=== PATIENT | male | born 1980 | race Caucasian/White ===

== ENCOUNTER 2017-07-09 00:20 | Emergency (ER) | payer OTHER ==
[2017-07-09 00:58] LABS: Bilirubin Negative (Negative); Blood, Urine Negative (Negative); Glucose, Urine (Dipstick) Negative (Negative); Ketone, Urine Negative (Negative); Nitrite Negative (Negative); Protein, Urine (Dipstick) Negative (Neg-Trace); Urobilinogen 0.2 mg/dL (0.2-1.0)
[2017-07-09 01:50] LABS: Amphetamine Not Detected (NotDetected); Methadone Not Detected (NotDetected); Methamphetamine Not Detected (NotDetected)
[2017-07-09] MEDS ORDERED: Lidocaine 1% (PF) 30 ML VIAL ONE (02:35)
[2017-07-09 03:19] LABS: #Basophils 0.1 thou/uL (0.0-0.2); #Eosinphils 0.2 thou/uL (0.0-0.7); #Lymphocytes 3.1 thou/uL (1.20-3.40); #Monocytes 0.7 thou/uL (0.11-0.59); #Neutrophils 2.8 thou/uL (1.40-6.50); %Basophils 0.9 % (0.0-1.0); %Eosinophils 2.7 % (0.0-10.0); %Lymphocytes 45.8 % (21.0-51.0); %Monocytes 10.2 % (0.0-10.0); Hematocrit 46.8 % (42.0-52.0); Mean Platelet Volume 7.2 fL (7.4-10.4); Red Blood Cell (RBC) Count 5.38 mill/uL (4.70-6.10); White Blood Cell (WBC) Count 6.8 thou/uL (4.8-10.8)
[2017-07-09 03:30] LABS: CK (CPK) 102 U/L (30-200)
[2017-07-09 03:36] LABS: ALT (SGPT) 57 U/L (8-55); AST (SGOT) 58 U/L (5-34); Acetaminophen Less than 6.0 mcg/mL (10.0-30.0); Alkaline Phosphatase 95 U/L (40-150); Anion Gap 21 mmol/L (10-20); BUN (Urea Nitrogen) 23 mg/dL (8.9-20.6); Bilirubin, Total 0.5 mg/dL (0.2-1.2); Calc. Creatinine Clearance 0 mL/min (70-130); Calcium 8.7 mg/dL (7.8-10.44); Carbon Dioxide 23 mmol/L (22-29); Chloride 104 mmol/L (98-107); Estimated GFR-MDRD 73; Globulin 4.5 g/dL (2.4-3.5); Protein, Total 8.7 g/dL (6.0-8.3); Salicylate Less than 8.0 mg/dL (15.0-30.0)
[2017-07-09] MEDS ORDERED: busPIRone HCl 10 MG TAB PO SCH (18:00)
[2017-07-09] MEDS ORDERED: Folic Acid 1 MG TAB PO SCH ×2 (18:00→21:00)
[2017-07-09] MEDS ORDERED: Gabapentin 100 MG CAP PO SCH ×2 (18:15→21:00)
[2017-07-09] MEDS ORDERED: Hydrochlorothiazide 25 MG TAB PO SCH (18:15)
[2017-07-09] MEDS ORDERED: Carvedilol 6.25 MG TAB PO SCH (18:15)
[2017-07-09] MEDS ORDERED: NALTREXONE PO SCH (21:00)
[2017-07-10] MEDS ORDERED: busPIRone HCl 10 MG TAB PO SCH (09:00)
[2017-07-10] MEDS ORDERED: Carvedilol 6.25 MG TAB PO SCH (09:00)
[2017-07-10] MEDS ORDERED: Hydrochlorothiazide 25 MG TAB PO SCH (09:00)
[2017-07-10] MEDS ORDERED: Magnesium Oxide 400 MG TAB PO SCH (21:00)
[2017-07-10] MEDS ORDERED: Mirtazapine 15 MG TAB PO SCH (21:00)
[2017-07-11] MEDS ORDERED: Ondansetron ODT 8 MG TAB ONE (11:50)
[2017-07-11] MEDS ORDERED: Folic Acid 1 MG TAB ONE (22:22)
== END 2017-07-12 13:40 | disposition home or self-care (01) ==
LOC: ERS 00:20
DX: S41.112A Laceration without foreign body of left upper arm, initial encounter (principal); F32.9 Major depressive disorder, single episode, unspecified; F10.10 Alcohol abuse, uncomplicated; I10 Essential (primary) hypertension; K74.60 Unspecified cirrhosis of liver; J45.909 Unspecified asthma, uncomplicated; I85.00 Esophageal varices without bleeding; F41.9 Anxiety disorder, unspecified; Z79.899 Other long term (current) drug therapy; X83.8XXA Intentional self-harm by other specified means, initial encounter
CPT/HCPCS: 12002; 36415; 51701; 80053; 80306; 80307; 81003; 82550; 84443; 85025; 93005; 94760; 96360; J2001

== ENCOUNTER 2017-11-11 19:23 | Emergency (ER) | payer OTHER, SELFPAY ==
[2017-11-11 20:11] LABS: #Basophils 0.1 thou/uL (0.0-0.2); #Eosinphils 0.2 thou/uL (0.0-0.7); #Lymphocytes 3.1 thou/uL (1.20-3.40); #Monocytes 0.5 thou/uL (0.11-0.59); #Neutrophils 2.4 thou/uL (1.40-6.50); %Basophils 1.9 % (0.0-1.0); %Eosinophils 2.7 % (0.0-10.0); %Monocytes 8.1 % (0.0-10.0); %Neutrophils 38.3 % (42.0-75.0); Hemoglobin 14.7 g/dL (14.0-18.0); Mean Corpuscular HGB CONC 34.7 g/dL (32.0-36.0); Mean Corpuscular Hemoglobin 29.7 pg (27.0-31.0); Mean Corpuscular Volume 85.7 fl (80.0-94.0); Mean Platelet Volume 6.7 fL (7.4-10.4); Platelet Count 252 thou/uL (130-400); RBC Distribution Width 15.9 % (11.5-14.5); Red Blood Cell (RBC) Count 4.95 mill/uL (4.70-6.10); White Blood Cell (WBC) Count 6.4 thou/uL (4.8-10.8)
[2017-11-11 20:34] LABS: ALT (SGPT) 47 U/L (8-55); AST (SGOT) 56 U/L (5-34); Acetaminophen Less than 6.0 mcg/mL (10.0-30.0); Albumin 4.4 g/dL (3.5-5.0); Alkaline Phosphatase 90 U/L (40-150); Anion Gap 19 mmol/L (10-20); BUN (Urea Nitrogen) 16 mg/dL (8.9-20.6); Bilirubin, Total 0.6 mg/dL (0.2-1.2); Calc. Creatinine Clearance 0 mL/min (70-130); Calcium 8.6 mg/dL (7.8-10.44); Carbon Dioxide 21 mmol/L (22-29); Chloride 103 mmol/L (98-107); Estimated GFR-MDRD Greater than 90; Globulin 3.5 g/dL (2.4-3.5); Glucose 106 mg/dL (70-105); Potassium 3.6 mmol/L (3.5-5.1); Protein, Total 7.9 g/dL (6.0-8.3); Salicylate Less than 8.0 mg/dL (15.0-30.0); Sodium 139 mmol/L (136-145)
[2017-11-11 20:39] LABS: Alcohol 402 mg/dL (Less than 10)
[2017-11-11] MEDS ORDERED: Ondansetron HCl/PF 4 MG/2 ML Vial ONE (20:50)
[2017-11-11] MEDS ORDERED: Multivitamins, Adult 10 ML, Thiamine HCl 100 MG, Folic Acid 1 MG in Dextrose 5 %-0.45 %... IV SCH ×4 (21:00)
== END 2017-11-11 22:30 | disposition home or self-care (01) ==
LOC: ERS 19:23
DX: F10.129 Alcohol abuse with intoxication, unspecified (principal); I10 Essential (primary) hypertension; J45.909 Unspecified asthma, uncomplicated; F41.9 Anxiety disorder, unspecified; F32.9 Major depressive disorder, single episode, unspecified; K74.60 Unspecified cirrhosis of liver
CPT/HCPCS: 36415; 80053; 80307; 82140; 85025; 96365; 96366; 96375; 99406; J2405; J3411; J7042

== ENCOUNTER 2017-12-28 13:16 | Inpatient (IN) | payer OTHER ==
[2017-12-28] MEDS ORDERED: Lorazepam 2 MG/ML VIAL ONE ×2 (13:30→15:59)
[2017-12-28] MEDS ORDERED: Ondansetron HCl/PF 4 MG/2 ML Vial ONE (13:30)
[2017-12-28 13:53] LABS: #Eosinphils 0.1 thou/uL (0.0-0.7); #Lymphocytes 1.6 thou/uL (1.20-3.40); #Monocytes 0.6 thou/uL (0.11-0.59); #Neutrophils 4.6 thou/uL (1.40-6.50); %Basophils 0.5 % (0.0-1.0); %Eosinophils 0.9 % (0.0-10.0); %Lymphocytes 23.2 % (21.0-51.0); %Monocytes 8.5 % (0.0-10.0); %Neutrophils 66.9 % (42.0-75.0); Hemoglobin 16.1 g/dL (14.0-18.0); Mean Corpuscular HGB CONC 34.3 g/dL (32.0-36.0); Mean Corpuscular Hemoglobin 29.7 pg (27.0-31.0); Mean Corpuscular Volume 86.5 fl (80.0-94.0); Mean Platelet Volume 6.9 fL (7.4-10.4); Platelet Count 204 thou/uL (130-400); RBC Distribution Width 16.3 % (11.5-14.5); Red Blood Cell (RBC) Count 5.43 mill/uL (4.70-6.10); White Blood Cell (WBC) Count 6.9 thou/uL (4.8-10.8)
[2017-12-28 13:58] LABS: INR-International Normal Ratio 1.1; PTT 29.9 SEC (22.9-36.1); Prothrombin Time 14.1 SEC (12.0-14.7)
[2017-12-28 14:06] LABS: Acetaminophen Less than 6.0 mcg/mL (10.0-30.0); Alcohol 142 mg/dL (Less than 10); Salicylate Less than 8.0 mg/dL (15.0-30.0)
[2017-12-28 14:08] LABS: ALT (SGPT) 225 U/L (8-55); AST (SGOT) 212 U/L (5-34); Albumin 5.1 g/dL (3.5-5.0); Alcohol 143 mg/dL (Less than 10); Alkaline Phosphatase 89 U/L (40-150); Anion Gap 28 mmol/L (10-20); BUN (Urea Nitrogen) 14 mg/dL (8.9-20.6); Bilirubin, Total 1.9 mg/dL (0.2-1.2); Calc. Creatinine Clearance 0 mL/min (70-130); Calcium 9.8 mg/dL (7.8-10.44); Carbon Dioxide 16 mmol/L (22-29); Chloride 96 mmol/L (98-107); Estimated GFR-MDRD Greater than 90; Globulin 3.5 g/dL (2.4-3.5); Glucose 122 mg/dL (70-105); Potassium 3.6 mmol/L (3.5-5.1); Protein, Total 8.6 g/dL (6.0-8.3); Sodium 136 mmol/L (136-145)
[2017-12-28 14:49] LABS: Amphetamine Not Detected (NotDetected); Barbiturates Screen Not Detected (NotDetected); Benzodiazepine Screen Not Detected (NotDetected); Cocaine Metabolite Screen Not Detected (NotDetected); Medtox Control Line Valid? VALID (VALID); Medtox Reader # READER 1; Methadone Not Detected (NotDetected); Methamphetamine Not Detected (NotDetected); Opiate Screen Not Detected (NotDetected); Oxycodone Screen Not Detected (NotDetected); Phencyclidine (PCP) Not Detected (NotDetected); THC/Cannabinoid Screen Detected (NotDetected); Tricyclic Screen Not Detected (NotDetected)
[2017-12-28] MEDS ORDERED: Multivitamins, Adult 10 ML, Thiamine HCl 100 MG, Folic Acid 1 MG in Dextrose 5 %-0.45 %... IV SCH ×4 (15:30)
[2017-12-28] MEDS ORDERED: Acetaminophen 325 MG TAB PO PRN (16:55)
[2017-12-28 17:22] VITALS: BMI 34.0
--- NOTE | 2017-12-28 17:26 | PDOC.FPRHP ---
- History of Present Illness Chief Complaint: alcohol withdrawal History of Present Illness: Thierry Archer is a 37 yo M with a PMH of alcoholism, cirrhosis 2/2 alcohol abuse, HTN, Generalized Anxiety Disorder, Depression, Ascites, Spinal Stenosis, Chronic Pancreatitis, Asthma-mod persistent, peripheral neuropathy, allergic rhinitis who presents today due to alcohol withdrawal. Patient has a history of multiple hospitalizations due to alcohol withdrawal but has relapsed every time. He is seen by [facility] who manages his psych meds. For the last week, he has been drinking a fifth of vodka per day. His last beverage was at 2 am today. Later in the morning, he started developing tremors, formication, cloudy vision, and increased heart rate. He decided to come to the hospital because he knows he wants to get off alcohol. He states that chronic alcohol abuse has injured his body quite a bit. He has been vomiting for the last 3 days and has had decreased PO intake, with the exception of the vodka. He denies fevers, chest pain, dyspnea, visual or auditory hallucinations. - Allergies/Adverse Reactions Allergies Allergy/AdvReac Type Severity Reaction Status Date / Time No Known Allergies Allergy Verified 12/28/17 17:28 - Home Medications Medication Instructions Recorded Confirmed Type Gabapentin 100 mg PO TID 04/26/15 12/28/17 History Hydrochlorothiazide 25 mg PO QAM #0 tab 04/02/16 12/28/17 Rx ALButerol Sulfate [Ventolin Neb] 3 ml NEB Q6HR 08/19/16 12/28/17 History Albuterol Sulfate [Proventil Hfa] 2 puff INH Q6H PRN 08/19/16 12/28/17 History Carvedilol [Coreg] 6.25 mg PO BID-WM 12/28/17 12/28/17 History Esomeprazole Magnesium [Nexium] 40 mg PO QAM-WM 12/28/17 12/28/17 History Ondansetron [Zofran ODT] 4 mg PO Q4HR PRN 12/28/17 12/28/17 History Sertraline HCl [Zoloft] 50 mg PO DAILY 12/28/17 12/28/17 History - History PMHx: Alcoholism, Cirrhosis of the liver, Alcoholic Fatty Liver Disease, HTN, Ascites, Generalized Anxiety Disorder, Depression, Spinal Stenosis, Chronic Pancreatitis, Asthma-mod persistent, peripheral neuropathy, allergic rhinitis PSHx: Wrist repair FHx: Unknown Social: Endorsed alcohol use. Positive for marijuana on UDS. Lives with mother. - Review of Systems General: reports: weight/appetite/sleep changes, night sweats, fatigue. denies : fever/chills Eyes: reports: vision changes. denies: eye pain ENT: denies: nasal congestion, rhinorrhea Respiratory: denies: cough, congestion, shortness of breath Cardiovascular: denies: chest pain, edema, paroxysmal nocturnal dyspnea, orthopnea Gastrointestinal: reports: nausea, vomiting, abdominal pain. denies: diarrhea, constipation Genitourinary: denies: incontinence, dysuria, polyuria Skin: denies: rashes, lesions, jaundice Musculoskeletal: denies: pain, tenderness, stiffness, swelling, arthritis/ arthralgias Neurological: reports: seizure (history of seizures from DTs), other (tremors, formication). denies: numbness, syncope Psychological: denies: anxiety, depression - Vital signs BP: 162/117 HR: 106 RR: 17 Tmax: Pox: 96% on RA Wt: 120 kg - Physical Exam Constitutional: NAD, awake, alert and oriented HEENT: normocephalic and atraumatic, PERRLA, EOMI, conjunctiva clear, TM's clear and intact, normal nasal mucosa, MMM Neck: supple, FROM, trachea midline, no JVD Chest: no-tender to palpation Heart: RRR, normal S1/S2, no murmurs/rubs/gallops, pulses present, no edema Lungs: CTAB, no respiratory distress, good air movement, no rales/rhonchi, no wheezing Abdomen: soft, bowel sounds present, no masses/distention, no hernias -Abdomen: TTP in the epigastric region Musculoskeletal: normal structure, normal tone Neurological: no focal deficit, CN II-XII intact -Neurological: tremors present Skin: no rash/lesions Psychiatric: normal mood and affect, good judgment and insight FMR H&P: Results - Labs Result Diagrams: 12/29/17 04:25 12/29/17 04:25 Lab results: WBC 6.9 thou/uL (4.8-10.8) 12/28/17 13:36 Hgb 16.1 g/dL (14.0-18.0) 12/28/17 13:36 Hct 47.0 % (42.0-52.0) 12/28/17 13:36 MCV 86.5 fl (80.0-94.0) 12/28/17 13:36 Plt Count 204 thou/uL (130-400) 12/28/17 13:36 Neutrophils % 66.9 % (42.0-75.0) 12/28/17 13:36 Sodium 136 mmol/L (136-145) 12/28/17 13:27 Potassium 3.6 mmol/L (3.5-5.1) 12/28/17 13:27 Chloride 96 mmol/L (98-107) L 12/28/17 13:27 Carbon Dioxide 16 mmol/L (22-29) L 12/28/17 13:27 BUN 14 mg/dL (8.9-20.6) 12/28/17 13:27 Creatinine 0.89 mg/dL (0.6-1.3) 12/28/17 13:27 Glucose 122 mg/dL (70-105) H 12/28/17 13:27 Calcium 9.8 mg/dL (7.8-10.44) 12/28/17 13:27 Total Bilirubin 1.9 mg/dL (0.2-1.2) H 12/28/17 13:27 AST 212 U/L (5-34) H 12/28/17 13:27 ALT 225 U/L (8-55) H 12/28/17 13:27 Alkaline Phosphatase 89 U/L (40-150) 12/28/17 13:27 Ammonia 34 umol/L (18-72) 12/28/17 13:28 Serum Total Protein 8.6 g/dL (6.0-8.3) H 12/28/17 13:27 Albumin 5.1 g/dL (3.5-5.0) H 12/28/17 13:27 - EKG Interpretation EKG: sinus tachycardia FMR H&P: A/P - Problem List (1) Alcohol withdrawal syndrome Current Visit: No Status: Acute Code(s): F10.239 - ALCOHOL DEPENDENCE WITH WITHDRAWAL, UNSPECIFIED Qualifiers: Complication of substance-induced condition: with unspecified complication Qualified Code(s): F10.239 - Alcohol dependence with withdrawal, unspecified (2) Chronic alcohol abuse Current Visit: Yes Status: Chronic Code(s): F10.10 - ALCOHOL ABUSE, UNCOMPLICATED (3) Hyperbilirubinemia Current Visit: Yes Status: Acute Code(s): E80.6 - OTHER DISORDERS OF BILIRUBIN METABOLISM (4) Hx of esophageal varices Current Visit: Yes Status: Acute Code(s): Z87.19 - PERSONAL HISTORY OF OTHER DISEASES OF THE DIGESTIVE SYSTEM (5) Peripheral neuropathy Current Visit: Yes Status: Acute Code(s): G62.9 - POLYNEUROPATHY, UNSPECIFIED (6) Anxiety Current Visit: Yes Status: Acute Code(s): F41.9 - ANXIETY DISORDER, UNSPECIFIED (7) Depression Current Visit: Yes Status: Acute Code(s): F32.9 - MAJOR DEPRESSIVE DISORDER , SINGLE EPISODE, UNSPECIFIED (8) Asthma Current Visit: Yes Status: Acute Code(s): J45.909 - UNSPECIFIED ASTHMA, UNCOMPLICATED (9) Metabolic acidosis Current Visit: No Status: Acute Code(s): E87.2 - ACIDOSIS (10) Transaminitis Current Visit: No Status: Chronic Code(s): R74.0 - NONSPEC ELEV OF LEVELS OF TRANSAMNS & LACTIC ACID DEHYDRGNSE - Plan 1) Alcohol withdrawal syndrome: Admit to IMCU. MISTI Protocol. IVFs @ 160 ml/ hr. Ativan 2mg IV q2h. Supplement folate, thiamine, multivitamin. AM CBC and CMP. 2) Metabolic acidosis: 2/2 chronic alcohol abuse. IVFs @ 160 ml/hr. Continue to monitor. 3) Chronic alcohol abuse 4) Transaminitis: 2/2 above. Continue to trend. 5) Hyperbilirubinemia: 2/2 above. Continue to trend. 6) Hx of esophageal varices: Start patient on protonix, zofran for nausea 7) Peripheral neuropathy: cont home gabapentin 8) Asthma: Home meds 9) Anxiety/depression: home meds FMR H&P: Upper Level - Pertinent history Pt is a 37yo CM with PMHx of chronic alcohol abuse w/ multiple relapses, cirrhosis 2/2 EtOH, anxiety/depression and hx of suicide attempts who presents with alcohol withdrawals. Patient has been hospitalized multiple times for alcohol withdrawal though his last hospitalization was in May. He has been doing well and is followed outpatient by [facility]. However, last week he went into binge episode and drank a fifth of vodka. No specific trigger or illicit event but just that he has multiple chronic life stressors. Has been trying to dec his vodka intake each day to wean himself off alcohol. Last drink at 2am where he drank about to 1 pint of vodka. Endorses racing heart, sweats, creepy crawlies and vomiting for several days. Hx of DTs. ED: folate 1mg, thiamine 100mg IV, NS 1L bolus, Ativan 4mg, Zofran 8mg - Pertinent findings T 98.6 RR 16 HR 127 BP 150/118 O2 98% on RA wt 130kg Gen: NAD, resting tremors HEENT: PERRLA Heart: S1 S2, tachycardic Lungs: CTAB Abd: soft, slight TTP diffusely, BS+, +asterixis AST/ALT: 212/225 Tbili: 1.9 (+) THC - Plan Date/Time: 12/28/17 1718 1. Alcohol withdrawal: Patient with hx of chronic alcohol abuse with multiple relapses. Last drink at 2AM now with withdrawal symptoms. ASE protocol. Due to transaminitis will hold long-acting benzos for now and give Ativan prn. Admit to IMCU and monitor closely for DTs. Cont thiamine, folate and MV. 2. AG metabolic acidosis: 2/2 #1. Cont IVF and monitor. 3. Chronic EtOH abuse: patient with longstanding chronic alcohol abuse w/ multiple relapses/hospitalizations for withdrawals. AST/ALT currently elevated but if improving likely start Librium taper. Obtain lipase. 4. Transaminitis: 2/2 #3. Monitor. 5. Hyperbilirubinemia: 2/2 #3. Monitor. 6. Cirrhosis 2/2 EtOH. 7. HTN: Cont home meds. Monitor 8. Anxiety/Depression: cont home meds 9. Peripheral neuropathy: cont home gabapentin. 10. Diet: regular 11. PPx: SCDs and protonix 12. Code Status: full I, Yadira Zamudio, have evaluated this patient and agree with findings/ plan as outlined by internal recruiter resident. Pertinent changes/additions are listed here. Attending Addendum - Attending Addendum Date/Time: 12/28/172010 I personally evaluated the patient and discussed the management with Dr. Blas. I agree with the History, Examination, Assessment and Plan documented above with any addition or exceptions noted below. The patient presented to the ER for alcohol withdrawal. He has a history of seizures in the past with withdrawal. He has been drinking heavily for the past week. Patient's blood pressure is also elevated as he has not been taking his bp meds while drinking. Transaminases are elevated. Pt received ativan in the ER and he still has tremors. Will schedule benzos and place on ase protocol. Restart home meds. Trend liver enzymes.
[2017-12-28] MEDS: Lorazepam 2 MG/ML VIAL SLOW IVP PRN (19:29)
[2017-12-28] MEDS: Sodium Chloride 0.9% 1,000 ML IV SCH (20:16)
[2017-12-29] MEDS: Lorazepam 2 MG/ML VIAL SLOW IVP PRN ×3 (00:09→20:44)
[2017-12-29] MEDS: Ondansetron ODT 4 MG TAB PO PRN ×2 (00:15→08:39)
[2017-12-29] MEDS: Sodium Chloride 0.9% 1,000 ML IV SCH ×2 (02:10→05:25)
[2017-12-29 04:53] LABS: ALT (SGPT) 144 U/L (8-55); AST (SGOT) 113 U/L (5-34); Albumin 4.1 g/dL (3.5-5.0); Alkaline Phosphatase 67 U/L (40-150); Anion Gap 14 mmol/L (10-20); BUN (Urea Nitrogen) 11 mg/dL (8.9-20.6); Bilirubin, Total 1.9 mg/dL (0.2-1.2); Calc. Creatinine Clearance 208 mL/min (70-130); Calcium 8.5 mg/dL (7.8-10.44); Carbon Dioxide 25 mmol/L (22-29); Chloride 100 mmol/L (98-107); Estimated GFR-MDRD Greater than 90; Globulin 2.7 g/dL (2.4-3.5); Glucose 98 mg/dL (70-105); Potassium 3.1 mmol/L (3.5-5.1); Protein, Total 6.8 g/dL (6.0-8.3); Sodium 136 mmol/L (136-145)
[2017-12-29 05:25] LABS: #Eosinphils 0.1 thou/uL (0.0-0.7); #Lymphocytes 1.4 thou/uL (1.20-3.40); #Monocytes 0.4 thou/uL (0.11-0.59); #Neutrophils 2.7 thou/uL (1.40-6.50); %Basophils 0.6 % (0.0-1.0); %Eosinophils 1.4 % (0.0-10.0); %Monocytes 9.2 % (0.0-10.0); %Neutrophils 58.8 % (42.0-75.0); Band 6 % (5-11); Hemoglobin 13.3 g/dL (14.0-18.0); Lymphocytes 32 % (21-51); MDiff Complete? YES; Mean Corpuscular HGB CONC 33.6 g/dL (32.0-36.0); Mean Corpuscular Hemoglobin 29.5 pg (27.0-31.0); Mean Corpuscular Volume 87.8 fl (80.0-94.0); Mean Platelet Volume 7.3 fL (7.4-10.4); Monocytes 5 % (0-10); Neutrophil 51 % (42-75); PLT Morphology Comment Appears Decreased; Platelet Count 105 thou/uL (130-400); RBC Distribution Width 15.9 % (11.5-14.5); RBC Morphology Normal; Reactive Lymphocytes 6 % (0-10); Red Blood Cell (RBC) Count 4.53 mill/uL (4.70-6.10); White Blood Cell (WBC) Count 4.6 thou/uL (4.8-10.8)
[2017-12-29] MEDS ORDERED: Potassium Chloride 20 MEQ TAB PO SCH ×2 (06:30→21:00)
[2017-12-29] MEDS: Multivitamin W/ Minerals 1 TAB PO SCH (08:39)
[2017-12-29] MEDS: Folic Acid 1 MG TAB PO SCH (08:39)
--- NOTE | 2017-12-29 09:42 | PDOC.FM ---
- Subjective Subjective: JELLY overnight, required 6 mg total of PRN ativan since admission. Continued nausea and epigastric abdominal pain w/ resolved episodes of emesis. No new complaints. - Objective MAR Reviewed: Yes Vital Signs & Weight: Vital Signs (12 hours) Temp Pulse Resp BP BP BP Pulse Ox 12/29/17 07:40 98.0 F 89 20 126/105 H 98 12/29/17 05:00 143/87 H 12/29/17 04:00 98.7 F 89 18 121/77 95 12/29/17 01:00 133/99 H 12/29/17 00:00 98.7 F 105 H 18 133/99 H 97 Weight Admit Weight 120.111 kg Weight 120.111 kg I&O: 12/28/17 12/29/17 12/30/17 06:59 06:59 06:59 Intake Total 2090 Output Total 570 Balance 1520 Result Diagrams: 12/29/17 04:25 12/29/17 04:25 <Francis Almendarez - Last Filed: 12/29/17 09:41> - Objective Vital Signs & Weight: Vital Signs (12 hours) Temp Pulse Resp BP BP BP Pulse Ox 12/29/17 09:00 126/105 H 12/29/17 08:00 98.0 F 89 20 98 12/29/17 07:40 98.0 F 89 20 126/105 H 98 12/29/17 05:00 143/87 H 12/29/17 04:00 98.7 F 89 18 121/77 95 12/29/17 01:00 133/99 H 12/29/17 00:00 98.7 F 105 H 18 133/99 H 97 Weight Admit Weight 120.111 kg Weight 120.111 kg I&O: 12/28/17 12/29/17 12/30/17 06:59 06:59 06:59 Intake Total 2090 Output Total 570 Balance 1520 Result Diagrams: 12/29/17 04:25 12/29/17 04:25 <Robert Jacobo - Last Filed: 12/29/17 11:41> Phys Exam - Physical Examination Constitutional: NAD HEENT: PERRLA Respiratory: clear to auscultation bilateral Cardiovascular: RRR Gastrointestinal: soft, no distention, positive bowel sounds epigastric and RUQ TTP. Negative avalos Musculoskeletal: pulses present Mild tremor w/ hands outstretched Psychiatric: normal affect <TaneshaFrancis Jesus - Last Filed: 12/29/17 09:41> Dx/Plan (1) Alcohol withdrawal syndrome Code(s): F10.239 - ALCOHOL DEPENDENCE WITH WITHDRAWAL, UNSPECIFIED Status: Acute QualifierTitle: Complication of substance-induced condition: with unspecified complication Qualified Code(s): F10.239 - Alcohol dependence with withdrawal, unspecified Plan: Pt w/ 10 days of drinking s/p 5 months of being sober w/ minor withdrawal sxs at approx 30 hrs since last drink Will plan to continue w/ short acting benzo w/ ativan 2/2 elevated LFT's likely 2/2 inflammation from his drinking No imaging has been performed to in 1 year to monitor his cirrhosis. Will obtain RUQ U/S to monitor this Cont. w/ IVF and ASE protocol If RUQ stable and LFT's continue to downtrend will transition to librium taper to be continued upon discharge w/ outpatient f/u Discussed case w/ Crit Care Dr. Seo who agrees low likelyhood of Pt developing DT's after only drinking again for 10 days after 5 months sober Will plan to watch in IMCU through this afternoon w/ transition to medical floor later on tonight if pt remains stable (2) Abdominal pain Code(s): R10.9 - UNSPECIFIED ABDOMINAL PAIN Status: Acute QualifierTitle: Abdominal location: right upper quadrant Qualified Code(s ): R10.11 - Right upper quadrant pain Plan: Likely 2/2 alcoholic gastritis vs alcoholic hepatitis Pt w/ hx of gallstones as well w/ hx of N/V x3 days prior to cessation of drinking Will eval for possible gallstone disease as well as cirrhosis to rule this out Cont. w/ zofran for nausea control. Cont. w/ PPI PO as tolerated (3) Hx of esophageal varices Code(s): Z87.19 - PERSONAL HISTORY OF OTHER DISEASES OF THE DIGESTIVE SYSTEM Status: Acute Plan: Pt denies any hematochezia, melena, or hematemesis cont. w/ protonix Will cont. to monitor (4) Hyperbilirubinemia Code(s): E80.6 - OTHER DISORDERS OF BILIRUBIN METABOLISM Status: Acute Plan: Likely 2/2 acute inflammation from resuming EtOH intake RUQ US to rule out gallbladder disease and for cirrhosis monitoring Will cont. to monitor w/ AM CMPS (5) Hypokalemia Code(s): E87.6 - HYPOKALEMIA Status: Acute Plan: Will replace, repeat in AM (6) Alcoholic cirrhosis of liver Code(s): K70.30 - ALCOHOLIC CIRRHOSIS OF LIVER WITHOUT ASCITES Status: Chronic QualifierTitle: Ascites presence: without ascites Qualified Code(s): K70.30 - Alcoholic cirrhosis of liver without ascites Plan: RUQ US to monitor as no imaging for 1 year (7) Hypertension Code(s): I10 - ESSENTIAL (PRIMARY) HYPERTENSION Status: Chronic Plan: Pt w/ elevated BP, asymptomatic Will restart home meds <Francis Almendarez K - Last Filed: 12/29/17 09:41> Attending Addendum - Attending Addendum Date/Time: 12/29/17 1140 I personally evaluated the patient and discussed the management with Dr. Almendarez. I agree with the History, Examination, Assessment and Plan documented above with any addition or exceptions noted below. <Robert Jacobo - Last Filed: 12/29/17 11:41>
--- NOTE | 2017-12-29 09:50 | CON ---
DATE OF CONSULTATION: 12/29/2017 SERVICE: Pulmonary Medicine. REASON FOR CONSULTATION: [facility] patient. HISTORY OF PRESENT ILLNESS: The patient is a 37-year-old white male with past medical history signif icant for polysubstance drug abuse. He uses a lot of alcohol. His cirrhosis is secondary to alcohol abuse. He has had multiple periods of his life in which he has been sober. Most recently, he has b een sober for a period of 5 months. Ten days ago, he started drinking heavily again. He stopped dri nking at 02:00 in the morning, a little over 24 hours ago. When he decided to stop drinking, he came into the hospital immediately because he has a history of severe DTs. At one point, he tells us gm t he spent 40 days in the hospital. He has a history of seizures. Otherwise, there has been no inte rval change to his condition. He noted some abdominal discomfort on presentation, but it seems to be improved at this time. He feels a little bit anxious and feels a pins and needle sensation across h is legs. He feels the need to move him is a little restless. Outside of this, he has got no signifi cant features of withdrawal. PAST MEDICAL HISTORY: 1. Alcohol abuse. 2. Cirrhosis. 3. Hypertension. 4. Generalized anxiety disorder. 5. Major depressive disorder. 6. Chronic pancreatitis. 7. Asthma. 8. Rhinitis. 9. Peripheral neuropathy. PAST SURGICAL HISTORY: Wrist repair. FAMILY HISTORY: Noncontributory. SOCIAL HISTORY: Alcohol abuse is present, previously heavy. He is positive for cannabinoids. He de nies any other illicit drugs. He does not use any significant tobacco products. He lives with his m other and has no exposure to chemicals, dust asbestos or tuberculosis. ALLERGIES: No known drug allergies. MEDICATIONS: List of his inpatient medications were reviewed. No specific updates were made at this time. REVIEW OF SYSTEMS: General, head, ears, eyes, nose, throat, cardiovascular, respiratory, GI, , mus culoskeletal, neurologic and skin is negative except as mentioned in the HPI. PHYSICAL EXAMINATION: VITAL SIGNS: Afebrile, pulse 89, blood pressure 143/87, respirations 20, saturation 98% on room air. GENERAL: The patient is awake, alert, no apparent distress. LUNGS: There is excellent air entry with no prolonged expiratory phase, wheezing, rhonchi or crackle s. HEART: Normal rate, regular. ABDOMEN: Soft, nontender, nondistended. Bowel sounds are positive. MUSCULOSKELETAL: No cyanosis or clubbing. No pitting in the bilateral lower extremities. NEUROLOGIC: Grossly nonfocal. He has got a very small coarse tremor of the bilateral upper extremit ies. LABORATORY DATA: WBC 4.6, hemoglobin 13.3, platelets 105,000. INR 1.1. Potassium 3.1. Basic metab olic profile is otherwise unremarkable. AST and ALT are downtrending beautifully. Total bilirubin i s stable at 1.9, magnesium and ammonia normal. Lipase is unremarkable. Urine drug screen is positiv e for cannabinoids. Plasma alcohol level is down trending. Acetaminophen and salicylates are negati ve. ASSESSMENT: 1. Alcohol withdrawal. 2. Alcohol abuse. 3. Cirrhosis of the liver, source of the liver without acute decompensation. 4. History of delirium tremens. PLAN: Right now, the patient is showing very mild signs of withdrawal features. He tells me that he was sober for previous 5 months though in early November, he came into the Emergency Department acut durga intoxicated. He suggests to me that he has only been drinking once again for the past 10 days. If this is true, I doubt that he will develop significant withdrawal features moving forward. Right now, he is alert and oriented x3, and is in no significant distress. He has got a minimal tremor, wh ich he seems to embellish slightly. The belly pain on presentation is now much improved. The [place] [facility] is working that. From my perspective, he can be transitioned to the medical unit. I will replace his potassium. Pulmonary and Critical Care will continue to follow for 1-2 additional days. Agree with MISTI scores routinely.
[2017-12-29] MEDS ORDERED: PROVENTIL INHALER 6.7 G (200 INHALATIONS) INH PRN (09:54)
[2017-12-29] MEDS ORDERED: Hydrochlorothiazide 25 MG TAB PO SCH (10:00)
[2017-12-29] MEDS ORDERED: Carvedilol 6.25 MG TAB PO SCH (10:00)
--- NOTE | 2017-12-29 17:49 | ULT ---
RIGHT UPPER QUADRANT SONOGRAM: HISTORY: Abdominal pain. COMPARISON: 07/17/2015. FINDINGS: A small amount of echogenic material layers within the dependent portion of the gallbladder lumen. There is no gallbladder wall thickening or pericholecystic fluid. The common duct is 0.7 cm. The li judy is diffusely echogenic and heterogeneous without focal mass. No free fluid is apparent. IMPRESSION: 1. Biliary sludge is consistent with chronic gallbladder dyskinesis. No evidence of acute biliary ob struction. 2. Hepatosteotosis. POS: TPC
[2017-12-29] MEDS: Carvedilol 6.25 MG TAB PO SCH (17:55)
[2017-12-30 05:13] LABS: #Eosinphils 0.1 thou/uL (0.0-0.7); #Lymphocytes 1.6 thou/uL (1.20-3.40); #Monocytes 0.4 thou/uL (0.11-0.59); #Neutrophils 1.9 thou/uL (1.40-6.50); %Basophils 0.5 % (0.0-1.0); %Eosinophils 3.4 % (0.0-10.0); %Lymphocytes 38.2 % (21.0-51.0); %Monocytes 10.7 % (0.0-10.0); %Neutrophils 47.2 % (42.0-75.0); Hemoglobin 13.9 g/dL (14.0-18.0); Mean Corpuscular HGB CONC 32.9 g/dL (32.0-36.0); Mean Corpuscular Hemoglobin 29.1 pg (27.0-31.0); Mean Corpuscular Volume 88.2 fl (80.0-94.0); Mean Platelet Volume 7.8 fL (7.4-10.4); Platelet Count 99 thou/uL (130-400); RBC Distribution Width 15.6 % (11.5-14.5); Red Blood Cell (RBC) Count 4.77 mill/uL (4.70-6.10); White Blood Cell (WBC) Count 4.1 thou/uL (4.8-10.8)
[2017-12-30 05:17] LABS: ALT (SGPT) 142 U/L (8-55); AST (SGOT) 120 U/L (5-34); Albumin 4.3 g/dL (3.5-5.0); Alkaline Phosphatase 75 U/L (40-150); Anion Gap 15 mmol/L (10-20); BUN (Urea Nitrogen) 7 mg/dL (8.9-20.6); Bilirubin, Total 1.6 mg/dL (0.2-1.2); Calc. Creatinine Clearance 227 mL/min (70-130); Calcium 9.3 mg/dL (7.8-10.44); Carbon Dioxide 25 mmol/L (22-29); Chloride 99 mmol/L (98-107); Estimated GFR-MDRD Greater than 90; Globulin 3.2 g/dL (2.4-3.5); Glucose 103 mg/dL (70-105); Magnesium 1.7 mg/dL (1.6-2.6); Potassium 3.4 mmol/L (3.5-5.1); Protein, Total 7.5 g/dL (6.0-8.3); Sodium 136 mmol/L (136-145)
[2017-12-30] MEDS ORDERED: Potassium Chloride 20 MEQ TAB PO SCH (07:30)
--- NOTE | 2017-12-30 07:32 | PDOC.FM ---
- Subjective Subjective: JELLY overnight, VSS. No new complaints this AM. Minimal tremor. 6 mg of ativan used yesterday. Tolerated PO intake. Abdominal pain mildly improved. Still endorsing nausea which is improved w/ PRN zofran. - Objective MAR Reviewed: Yes Vital Signs & Weight: Vital Signs (12 hours) Temp Pulse Resp BP BP Pulse Ox 12/30/17 00:00 98.8 F 84 16 113/75 97 12/29/17 21:00 138/98 H 12/29/17 20:00 98.4 F 99 18 138/98 H 98 Weight Admit Weight 120.111 kg Weight 120.111 kg I&O: 12/29/17 12/30/17 12/31/17 06:59 06:59 06:59 Intake Total 2089 2019 Output Total 570 Balance 1520 2019 Result Diagrams: 12/30/17 04:51 12/30/17 04:51 <Francis Almendarez - Last Filed: 12/30/17 07:30> - Objective Vital Signs & Weight: Vital Signs (12 hours) Temp Pulse Resp BP BP BP Pulse Ox 12/30/17 08:12 150/95 H 12/30/17 07:49 97.2 F L 98 20 133/92 H 98 12/30/17 04:00 98.7 F 81 16 111/73 95 12/30/17 00:00 98.8 F 84 16 113/75 97 Weight Admit Weight 120.111 kg Weight 120.111 kg I&O: 12/29/17 12/30/17 12/31/17 06:59 06:59 06:59 Intake Total 2089 2369 Output Total 570 580 Balance 1520 1790 Result Diagrams: 12/30/17 04:51 12/30/17 04:51 <Robert Jacobo - Last Filed: 12/30/17 09:02> Phys Exam - Physical Examination Constitutional: NAD HEENT: PERRLA, moist MMs Respiratory: clear to auscultation bilateral Cardiovascular: RRR, no significant murmur Gastrointestinal: soft, positive bowel sounds mild tenderness to palpation epigastrium, negative murphys Musculoskeletal: no edema Neurological: moves all 4 limbs minimal tremor w/ hands outstretched. No diaphoresis. Psychiatric: normal affect, A&O x 3 Skin: cap refill <2 seconds <Francis Almendarez - Last Filed: 12/30/17 07:30> Dx/Plan (1) Alcohol withdrawal syndrome Code(s): F10.239 - ALCOHOL DEPENDENCE WITH WITHDRAWAL, UNSPECIFIED Status: Acute QualifierTitle: Complication of substance-induced condition: with unspecified complication Qualified Code(s): F10.239 - Alcohol dependence with withdrawal, unspecified Plan: Pt w/ 10 days of drinking s/p 5 months of being sober w/ minor withdrawal sxs at approx 53 hrs since last drink 6 mg of ativan used in last 24 hours which converts to 150 mg of librium Will start PO taper w/ PO librium at 25 mg QID Discussed case w/ Crit Care Dr. Seo who agrees pt at low risk for withdrawal seizure and DT's 2/2 prolonged period of being sober and only 10 days actively drinking Will consider d/c today on librium taper (2) Abdominal pain Code(s): R10.9 - UNSPECIFIED ABDOMINAL PAIN Status: Acute QualifierTitle: Abdominal location: epigastric Qualified Code(s): R10.13 - Epigastric pain Plan: Improved sxs on Protonix Likely 2/2 alcoholic gastritis Tolerating PO Nausea controlled w/ PRN zofran RUQ showing sludge w/o evidence of cholecystitis or docholithiasis Cont. w/ PPI for gastritis w/ improvement in sxs Zofran for nausea control Plan to have pt see surgery for elective aminta as outpatient if he continues to be symptomatic s/p resolution of gastritis (3) Hx of esophageal varices Code(s): Z87.19 - PERSONAL HISTORY OF OTHER DISEASES OF THE DIGESTIVE SYSTEM Status: Acute Plan: Pt denies any hematochezia, melena, or hematemesis cont. w/ protonix Will cont. to monitor (4) Hyperbilirubinemia Code(s): E80.6 - OTHER DISORDERS OF BILIRUBIN METABOLISM Status: Acute Plan: Likely 2/2 acute inflammation from resuming EtOH intake RUQ US negative for dilated CBD Will cont. to monitor (5) Hypokalemia Code(s): E87.6 - HYPOKALEMIA Status: Acute Plan: Will replace (6) Alcoholic cirrhosis of liver Code(s): K70.30 - ALCOHOLIC CIRRHOSIS OF LIVER WITHOUT ASCITES Status: Chronic QualifierTitle: Ascites presence: without ascites Qualified Code(s): K70.30 - Alcoholic cirrhosis of liver without ascites Plan: RUQ stable (7) Hypertension Code(s): I10 - ESSENTIAL (PRIMARY) HYPERTENSION Status: Chronic Plan: Cont. w/ home meds Stable <Francis Almendarez - Last Filed: 12/30/17 07:30> Attending Addendum - Attending Addendum Date/Time: 12/30/17 0901 I personally evaluated the patient and discussed the management with Dr. Almendarez. I agree with the History, Examination, Assessment and Plan documented above with any addition or exceptions noted below. Patient is stable for discharge with librium taper. <Robert Jacobo A - Last Filed: 12/30/17 09:02>
[2017-12-30] MEDS: Ondansetron ODT 4 MG TAB PO PRN (07:35)
[2017-12-30 07:50] VITALS: TEMP 97.2
[2017-12-30] MEDS: Folic Acid 1 MG TAB PO SCH (08:12)
[2017-12-30] MEDS: Carvedilol 6.25 MG TAB PO SCH (08:12)
[2017-12-30] MEDS: Multivitamin W/ Minerals 1 TAB PO SCH (08:12)
--- NOTE | 2017-12-30 08:42 | PRG ---
DATE OF SERVICE: 12/30/2017 The patient seems to be doing okay, had no acute complaints. PHYSICAL EXAMINATION: VITAL SIGNS: Temperature is 97.2, pulse 98, blood pressure 150/95, O2 sat 98%. HEENT: Unremarkable. NECK: No JVD. CHEST: Clear. CARDIAC: S1 and S2 regular. ABDOMEN: Soft. EXTREMITIES: No edema. LABORATORY DATA: White blood cell count 4.1, hematocrit 42, platelet count 99. Sodium 136, potassiu m 3.4, chloride 99, CO2 25, BUN 7, creatinine 0.7, glucose 103, AST 120, ALT 142. ASSESSMENT: 1. Alcohol withdrawal, which seems to be mild. 2. Mild elevation in liver function tests probably secondary to alcoholic hepatitis. PLAN: He can be transferred out to the floor and perhaps even home. There is no acute Pulmonary Cri tical Care concerns at this time. We are available as needed.
[2017-12-30] MEDS ORDERED: chlordiazePOXIDE HCl 25 MG CAP PO SCH (09:00)
[2017-12-30] MEDS ORDERED: Hydrochlorothiazide 25 MG TAB PO SCH (09:00)
[2017-12-30 10:09] VITALS: BP 133/92
--- NOTE | 2017-12-30 11:49 | DIS-2 ---
DATE OF ADMISSION: 12/28/2017 DATE OF DISCHARGE: 12/30/2017 ADMITTING ATTENDING: Dr. Margarita Almendarez. DISCHARGE ATTENDING: Dr. Robert Jacobo RESIDENT: Francis Almendarez M.D. CONSULTATIONS: Critical Care Pulmonology. PROCEDURES: None. IMAGING: Right upper quadrant abdominal ultrasound showing hepatosteatosis as well as biliary sludge without evidence of pericholecystic fluid or acute biliary obstruction. PRIMARY DIAGNOSIS: 1. Minor alcohol withdrawal. 2. Alcoholic hepatitis. 3. Alcoholic gastritis. SECONDARY DIAGNOSES: 1. Chronic alcohol abuse. 2. History of esophageal varices. 3. Peripheral neuropathy. 4. Anxiety. 5. Depression. 6. Asthma. DISCHARGE MEDICATIONS: 1. Librium 25 mg p.o. per taper taking 25 mg p.o. q.i.d. on day 1 with decrease of 25 mg daily there after. 2. Protonix 40 mg p.o. daily. 3. Zofran ODT 4 mg sublingual q.6 hours as needed for nausea and vomiting. 4. Proventil HFA 2 puffs q.6 hours as needed for shortness of breath or wheezing. 5. Coreg 6.25 mg p.o. b.i.d. with meals. 6. HCTZ 25 mg p.o. q.a.m. 7. Zoloft 75 mg p.o. every day. 8. Gabapentin 100 mg p.o. t.i.d. 9. Nexium 40 mg p.o. q.a.m. with meals. DISCONTINUED MEDICATIONS: None. HISTORY OF PRESENT ILLNESS: The patient is a 37-year-old male well known to our service with multipl e prior admissions for alcohol withdrawal, who presents status post 10 days of heavy alcohol use, dri nking a fifth of vodka daily. The patient reportedly was 5 months sober prior to this. His last francesco erage was at 2 a.m. on the date of admission. The patient stated that he had a few days of nausea, v omiting prior to alcohol cessation. After stopping drinking the patient started having tremors, clou dy vision and increased heart rate, which prompted him to come to the ER for further evaluation. The patient denied any visual hallucinations at time of admission. The patient was admitted to the [facility] for further monitoring secondary to history of delirium tremens. The patient with minor symptoms of tachycardia as well as tremor which was controlled with p.r.n. Ativan use. The patient did have bridget vated liver functions above baseline from prior hospitalizations, which began to be down trending, st atus post IV fluid administration. Repeat right upper quadrant ultrasound was obtained to evaluate w ith the patient's history of hepatosteatosis, which was stable and no evidence of biliary obstruction in the setting of hyperbilirubinemia up to 1.9 which is down trending to 1.6 prior to discharge home . The patient was transitioned to p.o. Librium, which he was able to tolerate and discharged on a ta per with plans to follow up with PCP in the outpatient setting for further management. The patient d id have abdominal pain which is likely secondary to alcoholic gastritis with improvement on the p.o. Protonix he was being administered. Once alcoholic gastritis symptoms have resolved, further evaluat ion to see if the patient is having any biliary colic type symptoms in the setting of sludge would be recommended with subsequent referral to General Surgery for elective cholecystectomy if indicated. DISPOSITION: Stable. DISCHARGE INSTRUCTIONS: 1. Location: Home. 2. Activity: As tolerated. 3. Follow up with PCP in 7 days.
== END 2017-12-30 11:46 | disposition home or self-care (01) | DRG 897 ==
LOC: ERS 13:16 → IMCU/EMU 17:17
PROVIDERS: ADMIT Family Medicine; ATTEND Family Medicine
DX: F10.239 Alcohol dependence with withdrawal, unspecified (principal); E87.2 Acidosis; K70.10 Alcoholic hepatitis without ascites; K86.0 Alcohol-induced chronic pancreatitis; G62.9 Polyneuropathy, unspecified; R16.0 Hepatomegaly, not elsewhere classified; K70.31 Alcoholic cirrhosis of liver with ascites; K70.0 Alcoholic fatty liver; F41.1 Generalized anxiety disorder; J45.40 Moderate persistent asthma, uncomplicated; I10 Essential (primary) hypertension; F32.9 Major depressive disorder, single episode, unspecified; E80.6 Other disorders of bilirubin metabolism; Z87.19 Personal history of other diseases of the digestive system; R74.0 Nonspecific elevation of levels of transaminase and lactic acid dehydrogenase [LDH]; K29.20 Alcoholic gastritis without bleeding; E87.6 Hypokalemia; K21.9 Gastro-esophageal reflux disease without esophagitis; F12.10 Cannabis abuse, uncomplicated; Z91.5 Personal history of self-harm; M48.00 Spinal stenosis, site unspecified; Z87.891 Personal history of nicotine dependence
CPT/HCPCS: 36415; 76705; 80053; 80306; 80307; 82140; 83690; 83735; 85025; 85610; 85730; 93005; 96361; 96374; 96375; 96376; J2060; J2405; J3411; J7042

== ENCOUNTER 2018-02-15 13:32 | Inpatient (IN) | payer OTHER ==
[2018-02-15 14:06] LABS: Hemoglobin 16.1 g/dL (14.0-18.0); Mean Corpuscular HGB CONC 34.5 g/dL (32.0-36.0); Mean Corpuscular Hemoglobin 30.7 pg (27.0-31.0); Platelet Count 275 thou/uL (130-400); RBC Distribution Width 16.7 % (11.5-14.5); Red Blood Cell (RBC) Count 5.26 mill/uL (4.70-6.10)
[2018-02-15] MEDS ORDERED: Lorazepam 2 MG/ML VIAL ONE ×2 (14:07→14:27)
[2018-02-15 14:10] LABS: INR-International Normal Ratio 1.2; PTT 30.3 SEC (22.9-36.1); Prothrombin Time 15.2 SEC (12.0-14.7)
[2018-02-15 14:19] LABS: ALT (SGPT) 275 U/L (8-55); AST (SGOT) 213 U/L (5-34); Acetaminophen Less than 6.0 mcg/mL (10.0-30.0); Albumin 5.3 g/dL (3.5-5.0); Alcohol 48 mg/dL (Less than 10); Alkaline Phosphatase 94 U/L (40-150); Anion Gap 32 mmol/L (10-20); BUN (Urea Nitrogen) 10 mg/dL (8.9-20.6); Bilirubin, Total 1.7 mg/dL (0.2-1.2); CK (CPK) 181 U/L (30-200); Calc. Creatinine Clearance 0 mL/min (70-130); Calcium 9.8 mg/dL (7.8-10.44); Carbon Dioxide 15 mmol/L (22-29); Chloride 94 mmol/L (98-107); Estimated GFR-MDRD 72; Glucose 101 mg/dL (70-105); Lipase 38 U/L (8-78); Magnesium 1.6 mg/dL (1.6-2.6); Potassium 3.7 mmol/L (3.5-5.1); Protein, Total 9.3 g/dL (6.0-8.3); Salicylate Less than 8.0 mg/dL (15.0-30.0); Sodium 137 mmol/L (136-145)
[2018-02-15 14:22] LABS: Troponin I Less than 0.010 ng/mL (< 0.028)
[2018-02-15 14:35] LABS: Anisocytosis SLIGHT = 6-15 cells (100X) (0-5/hpf); Band 2 % (5-11); Lymphocytes 29 % (21-51); MDiff Complete? YES; Monocytes 5 % (0-10); Neutrophil 64 % (42-75); PLT Morphology Comment Appears Adequate
[2018-02-15 14:41] LABS: Bilirubin Moderate (Negative); Blood, Urine Negative (Negative); Clarity CLOUDY (Clear); Glucose, Urine (Dipstick) Negative (Negative); Leukocyte Negative (Negative); Nitrite Negative (Negative); Protein, Urine (Dipstick) 100 mg/dL (Neg-Trace)
[2018-02-15 14:44] LABS: Squamous Epithelial 0-3 HPF (0-3); WBC/HPF 0-3 HPF (0-3)
[2018-02-15 14:46] LABS: Pathc Cast-AUWi Flag 5.96 (0-2.49)
[2018-02-15 14:53] LABS: Amphetamine Not Detected (NotDetected); Barbiturates Screen Not Detected (NotDetected); Benzodiazepine Screen Detected (NotDetected); Cocaine Metabolite Screen Not Detected (NotDetected); Medtox Control Line Valid? VALID (VALID); Medtox Reader # READER 1; Methadone Not Detected (NotDetected); Methamphetamine Not Detected (NotDetected); Opiate Screen Not Detected (NotDetected); Oxycodone Screen Not Detected (NotDetected); Phencyclidine (PCP) Not Detected (NotDetected); THC/Cannabinoid Screen Detected (NotDetected); Tricyclic Screen Not Detected (NotDetected)
[2018-02-15 14:55] LABS: Bacteria/HPF Rare-Few HPF (None Seen); Hyaline Casts/LPF 0-3 HYALINE CAST LPF (0-3 Hyaline); Manual Microscopic Reviewed? No Path Casts Seen; RBC/HPF None Seen HPF (0-3); Renal Epithelial None Seen HPF (0-3); Transitional Epithelial NONE SEEN HPF (0-3)
--- NOTE | 2018-02-15 15:23 | PDOC.FPRHP ---
- History of Present Illness Chief Complaint: alcohol withdrawal History of Present Illness: Patient is a 37yo M with PMH of alcohol abuse, cirrhosis, and chronic pancreatitis presents after binge drinking 2 pints of vodka daily for 6 days with acute withdrawal sx. His last drink was 7pm 02/14. He was admitted in December 2017 and reports tapered off Librium and has been sober since then until the past 6 days. This morning he awoke around 6am with N/V, abdominal pain, flushing, diaphoresis, and tremors. His mom reports he also had some clenching of his fists in a contractured manner. He has had one withdrawal seizure in the past. In the ED, he was initially tachycardic to the 130's and at the time of my exam is in the 110's. He reports continued abdominal pain, RLQ and epigastric. ED Course: He was given 5mg of ativan and banana bag in the ED. - Allergies/Adverse Reactions Allergies Allergy/AdvReac Type Severity Reaction Status Date / Time No Known Allergies Allergy Verified 12/28/17 17:28 - Home Medications Medication Instructions Recorded Confirmed Type Gabapentin 100 mg PO TID 04/26/15 02/15/18 History Hydrochlorothiazide 25 mg PO QAM #0 tab 04/02/16 02/15/18 Rx ALButerol Sulfate [Ventolin Neb] 3 ml NEB Q6HR PRN 08/19/16 02/15/18 History Albuterol Sulfate [Proventil Hfa] 2 puff INH Q6H PRN 08/19/16 02/15/18 History Carvedilol [Coreg] 6.25 mg PO BID- 12/28/17 02/15/18 History Esomeprazole Magnesium [NexIUM] 40 mg PO QAM- 12/28/17 02/15/18 History Sertraline HCl [Zoloft] 50 mg PO DAILY 12/28/17 02/15/18 History Ondansetron [Zofran ODT] 4 mg PO Q4HR PRN #30 tab 12/30/17 02/15/18 Rx Pantoprazole [Protonix] 40 mg PO DAILY #30 tab 12/30/17 02/15/18 Rx - History PMHx: 1. Cirrhosis 2. Alcoholic Hepatitis 3. Chronic Pancreatitis 4. Spinal stenosis 5. Peripheral neuropathy 6. Depression 7. Anxiety 8. Asthma 9. HTN PSHx: 1. L arm tendon repair 2. B/l cosmetic ear repair 3. paracentesis FHx: noncontributory Social: Drinks 2pints of vodka daily for the past 6 days, multiple relapses in alcoholism. Denies tobacco and drug use. PCP: [facility] - Review of Systems General: reports: weight/appetite/sleep changes. denies: fever/chills, night sweats Eyes: denies: eye pain, vision changes ENT: denies: nasal congestion Respiratory: denies: cough, congestion, shortness of breath Cardiovascular: denies: chest pain, palpitation Gastrointestinal: reports: nausea, vomiting, abdominal pain. denies: diarrhea, GI bleeding Genitourinary: denies: incontinence, dysuria, polyuria Skin: denies: rashes, lesions, jaundice Musculoskeletal: denies: pain, tenderness Neurological: denies: numbness, syncope Psychological: reports: anxiety, depression - Vital signs BP: 141/97 HR: 112 RR: 20 Tmax: 98.2 Pox: 95% on RA Wt: 127kg - Physical Exam Constitutional: NAD, awake, alert and oriented -Constitutional: tremulous HEENT: normocephalic and atraumatic, EOMI, no scleral icterus, grossly normal vision, grossly normal hearing Heart: RRR, normal S1/S2, no edema Lungs: CTAB, no respiratory distress Abdomen: soft, bowel sounds present -Abdomen: mild fluid wave, ttp Musculoskeletal: normal structure Neurological: no focal deficit, CN II-XII intact Skin: no rash/lesions Heme/Lymphatic: no unusual bruising or bleeding Psychiatric: normal mood and affect FMR H&P: Results - Labs Result Diagrams: 02/15/18 13:51 02/15/18 13:51 Lab results: WBC 7.0 thou/uL (4.8-10.8) 02/15/18 13:51 Hgb 16.1 g/dL (14.0-18.0) 02/15/18 13:51 Hct 46.8 % (42.0-52.0) 02/15/18 13:51 MCV 89.0 fl (80.0-94.0) 02/15/18 13:51 Plt Count 275 thou/uL (130-400) 02/15/18 13:51 Band Neuts % (Manual) 2 % (5-11) L 02/15/18 13:51 Sodium 137 mmol/L (136-145) 02/15/18 13:51 Potassium 3.7 mmol/L (3.5-5.1) 02/15/18 13:51 Chloride 94 mmol/L (98-107) L 02/15/18 13:51 Carbon Dioxide 15 mmol/L (22-29) L 02/15/18 13:51 BUN 10 mg/dL (8.9-20.6) 02/15/18 13:51 Creatinine 1.14 mg/dL (0.6-1.3) 02/15/18 13:51 Glucose 101 mg/dL (70-105) 02/15/18 13:51 Calcium 9.8 mg/dL (7.8-10.44) 02/15/18 13:51 Total Bilirubin 1.7 mg/dL (0.2-1.2) H 02/15/18 13:51 AST 213 U/L (5-34) H 02/15/18 13:51 ALT 275 U/L (8-55) H 02/15/18 13:51 Alkaline Phosphatase 94 U/L (40-150) 02/15/18 13:51 Ammonia 52 umol/L (18-72) 02/15/18 13:51 Creatine Kinase 181 U/L (30-200) 02/15/18 13:51 CK-MB (CK-2) 1.0 ng/mL (0-6.6) 02/15/18 13:51 Serum Total Protein 9.3 g/dL (6.0-8.3) H 02/15/18 13:51 Albumin 5.3 g/dL (3.5-5.0) H 02/15/18 13:51 Lipase 38 U/L (8-78) 02/15/18 13:51 Urine Ketones 15 mg/dL (Negative) H 02/15/18 14:20 Urine Blood Negative (Negative) 02/15/18 14:20 Urine Nitrite Negative (Negative) 02/15/18 14:20 Ur Leukocyte Esterase Negative (Negative) 02/15/18 14:20 Urine RBC None Seen HPF (0-3) 02/15/18 14:20 Urine WBC 0-3 HPF (0-3) 02/15/18 14:20 Ur Squamous Epith Cells 0-3 HPF (0-3) 02/15/18 14:20 Urine Bacteria Rare-Few HPF (None Seen) 02/15/18 14:20 - EKG Interpretation EKG: Prolonged QT per ER physician. FMR H&P: A/P - Problem List (1) Alcohol withdrawal syndrome Current Visit: No Status: Acute Code(s): F10.239 - ALCOHOL DEPENDENCE WITH WITHDRAWAL, UNSPECIFIED Qualifiers: Complication of substance-induced condition: with unspecified complication Qualified Code(s): F10.239 - Alcohol dependence with withdrawal, unspecified (2) Abdominal pain Current Visit: No Status: Acute Code(s): R10.9 - UNSPECIFIED ABDOMINAL PAIN Qualifiers: Abdominal location: epigastric Qualified Code(s): R10.13 - Epigastric pain (3) Abstinence from alcohol Current Visit: No Status: Acute Code(s): Z78.9 - OTHER SPECIFIED HEALTH STATUS (4) Asthma Current Visit: No Status: Acute Code(s): J45.909 - UNSPECIFIED ASTHMA, UNCOMPLICATED (5) Depression Current Visit: No Status: Acute Code(s): F32.9 - MAJOR DEPRESSIVE DISORDER, SINGLE EPISODE, UNSPECIFIED (6) Hx of esophageal varices Current Visit: No Status: Acute Code(s): Z87.19 - PERSONAL HISTORY OF OTHER DISEASES OF THE DIGESTIVE SYSTEM (7) Hyperbilirubinemia Current Visit: No Status: Acute Code(s): E80.6 - OTHER DISORDERS OF BILIRUBIN METABOLISM (8) Metabolic acidosis Current Visit: No Status: Acute Code(s): E87.2 - ACIDOSIS (9) Peripheral neuropathy Current Visit: No Status: Acute Code(s): G62.9 - POLYNEUROPATHY, UNSPECIFIED (10) Alcoholic cirrhosis of liver Current Visit: No Status: Chronic Code(s): K70.30 - ALCOHOLIC CIRRHOSIS OF LIVER WITHOUT ASCITES Qualifiers: Ascites presence: without ascites Qualified Code(s): K70.30 - Alcoholic cirrhosis of liver without ascites (11) Cannabis abuse Current Visit: No Status: Chronic Code(s): F12.10 - CANNABIS ABUSE, UNCOMPLICATED (12) GERD (gastroesophageal reflux disease) Current Visit: No Status: Chronic Code(s): K21.9 - GASTRO-ESOPHAGEAL REFLUX DISEASE WITHOUT ESOPHAGITIS (13) Transaminitis Current Visit: No Status: Chronic Code(s): R74.0 - NONSPEC ELEV OF LEVELS OF TRANSAMNS & LACTIC ACID DEHYDRGNSE - Plan EtOH withdrawal: - Monitor in IMCU. - ASE protocol, benzos prn. - Continue thiamine, folate, IVFs. - Amylase normal, trend electrolytes as he is likely slightly volume down. - Has h/o esophageal varices and ibis villegas tear, will monitor symptoms closely. - MELD 12 (6% 90 day mortality). Anion Gap Metabolic Acidosis - 2/2 ethanol intoxication Alcoholic hepatitis: - Liver enzymes at about double his baseline currently, continue to trend. Prolonged QTC: - hold all potential QT prolonging agents - repeat EKG in am Depression/anxiety: - Hold sertraline due to QT Abdominal Pain: - likely 2/2 vomiting, will monitor. Asthma: - home meds - albuterol prn Cannabis abuse: - UDS positive despite denying use Alcohol Abuse: - discussed rehab with family and patient and they seem agreeable. HTN: - continue Coreg and HCTZ PPx: SCD Code status: Full FMR H&P: Upper Level - Pertinent history 37 yo M with PMH of EtOH hepatitis, HTN, depression presenting with shaking and vomiting after going on a week-long alcohol binge. Has had multiple similar hospitalizations, most recently in December 2017. States for last week he was drinking 2 pints of vodka daily. Last drink he remembers was at 7pm yesterday evening, states he "blacked out" after that. Has had multiple episodes of vomiting since he woke up at 0600, nonbloody, nonbilious. Has some epigastric pain currently. He describes having "contractures" in his upper and lower extremities preventing him from moving when he presented to the ER. 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 - Pertinent findings PE: T: 98.2 P: 112 BP: 141/97 RR: 20 95% RA Gen: [place] overweight male in NAD HEENT: PERRL, EOMI, MMM, no lymphadenopathy or thyromegaly CV: RRR no murmurs, distal pulses intact Pulm: CTAB, no wheezes or rhonchi Abd: soft, TTP in epigastrium, ND, BS present, no masses or distention Ext: no cyanosis or edema MSK: ARNOLD well, no joint or muscle pain or swelling Neuro: CN 2-12 intact, normal sensation, hands trembling bilaterally Psych: A&O x3, appropriate in conversation - Plan Date/Time: 02/15/18 1523 37 yo M here with shaking and vomiting 1) EtOH withdrawal: Monitor in IMCU. ASE protocol, benzos prn. Continue thiamine, folate, IVFs. Amylase normal, trend electrolytes as he is likely slightly volume down. Has h/o esophageal varices and ibis villegas tear, will monitor symptoms closely. MELD 12 (6% 90 day mortality). 2) Alcoholic hepatitis: Liver enzymes at about double his baseline currently, continue to trend. 3) Prolonged QTC: hold all potential QT prolonging agents 4) Depression/anxiety: Continue sertaline 5) Asthma: albuterol prn 6) Cannabis abuse: UDS positive despite denying use I, [Fahad Narayanan], have evaluated this patient and agree with findings/plan as outlined by international account executive resident. Pertinent changes/additions are listed here. Attending Addendum - Attending Addendum Date/Time: 02/15/18 1600 I personally evaluated the patient and discussed the management with Dr. Valdez/ Oracio. I agree with the History, Examination, Assessment and Plan documented above with any addition or exceptions noted below. Patient with history of alcoholic cirrhosis and chronic continued EtOH resulting in multiple hospitalizations for alcoholic withdrawals and other related complications presents to the ER today after cessation of a 1 week long drinking binge. Reports last drink 1900 last night. Awoke with morning with sweats, tremors, nausea, and vomiting. Reports chronic abdominal pain that has been worse today. Presented to the ER due to history of withdrawals and concern for seizure which he has had in the past, as well as DTs. Patient noted on exam to be tachycardic, tremulous, distended and tender abdomen, with enlarged liver and mild fluid wave. His labs are consistent with chronic liver disease and alcohol consumption. Patient to be admitted to IMCU initially for close monitoring of his withdrawal symptoms and to try to prevent onset of DT or seizures. Will begin baseline Valium with PRN Ativan and titrate as needed. ASE protocol. Will bolus 1L of fluids and then begin Banana bag and then maintenance fluids with LR. He has mild anion gap metabolic acidosis likely 2/2 alcoholic ketosis, continue to monitor and trend labs. Nausea medications as needed. Once his symptoms are controlled and no concern for DT, can likely transition to medical floor. Anticipate 2-3 day stay and will need alcohol cessation counselling as his current disease severity places him at increased mortality risk over the next 90 days.
[2018-02-15] MEDS ORDERED: Lorazepam 2 MG/ML VIAL SLOW IVP PRN (15:32)
[2018-02-15] MEDS ORDERED: Sodium Chloride 0.9% 1,000 ML IV SCH (15:45)
[2018-02-15] MEDS ORDERED: Diazepam 5 MG TAB PO PRN (15:52)
[2018-02-15] MEDS ORDERED: Thiamine HCl 200 MG/2 ML VIAL IM SCH (16:00)
[2018-02-15] MEDS ORDERED: Diazepam 5 MG TAB PO SCH (16:00)
[2018-02-15 16:33] VITALS: BMI 33.3
[2018-02-15] MEDS: Diazepam 5 MG TAB PO SCH ×2 (16:41→21:22)
[2018-02-15] MEDS: Multivitamins, Adult 10 ML, Folic Acid 1 MG, Thiamine HCl 100 MG in Dextrose 5 %-0.45 %... IV SCH (16:54)
[2018-02-15] MEDS ORDERED: Promethazine HCl 25 MG/ML VIAL IM/IV PRN (17:23)
[2018-02-15] MEDS: Lactated Ringer's 1,000 ML IV SCH (17:44)
[2018-02-15] MEDS ORDERED: Albuterol Sulfate 2.5 mg/3 ml Neb NEB PRN (18:02)
[2018-02-15] MEDS ORDERED: PROVENTIL INHALER 6.7 G (200 INHALATIONS) INH PRN (18:02)
[2018-02-15] MEDS: Gabapentin 100 MG CAP PO SCH (21:22)
[2018-02-16] MEDS: Diazepam 5 MG TAB PO SCH ×3 (01:18→08:26)
[2018-02-16] MEDS: Lactated Ringer's 1,000 ML IV SCH ×4 (02:16→22:22)
[2018-02-16] MEDS ORDERED: Diazepam 5 MG TAB PO PRN (04:00)
[2018-02-16 05:35] LABS: INR-International Normal Ratio 1.3; PTT 31.2 SEC (22.9-36.1); Prothrombin Time 16.2 SEC (12.0-14.7)
[2018-02-16 05:53] LABS: ALT (SGPT) 173 U/L (8-55); AST (SGOT) 117 U/L (5-34); Albumin 4.1 g/dL (3.5-5.0); Alkaline Phosphatase 68 U/L (40-150); Anion Gap 16 mmol/L (10-20); BUN (Urea Nitrogen) 9 mg/dL (8.9-20.6); Bilirubin, Total 1.4 mg/dL (0.2-1.2); Calc. Creatinine Clearance 182 mL/min (70-130); Calcium 8.4 mg/dL (7.8-10.44); Carbon Dioxide 25 mmol/L (22-29); Chloride 99 mmol/L (98-107); Estimated GFR-MDRD Greater than 90; Globulin 2.9 g/dL (2.4-3.5); Glucose 80 mg/dL (70-105); Potassium 3.3 mmol/L (3.5-5.1); Sodium 137 mmol/L (136-145)
[2018-02-16 06:18] LABS: Anisocytosis SLIGHT = 6-15 cells (100X) (0-5/hpf); Band 1 % (5-11); Hemoglobin 13.6 g/dL (14.0-18.0); Lymphocytes 45 % (21-51); MDiff Complete? YES; Mean Corpuscular HGB CONC 33.4 g/dL (32.0-36.0); Mean Corpuscular Hemoglobin 29.7 pg (27.0-31.0); Mean Corpuscular Volume 88.9 fl (80.0-94.0); Mean Platelet Volume 7.5 fL (7.4-10.4); Monocytes 16 % (0-10); Neutrophil 38 % (42-75); Platelet Count 158 thou/uL (130-400); RBC Distribution Width 16.3 % (11.5-14.5); Red Blood Cell (RBC) Count 4.59 mill/uL (4.70-6.10); White Blood Cell (WBC) Count 3.7 thou/uL (4.8-10.8)
[2018-02-16] MEDS: Pantoprazole 40 MG VIAL IVP SCH (08:26)
[2018-02-16] MEDS: Gabapentin 100 MG CAP PO SCH ×3 (08:26→21:14)
[2018-02-16] MEDS: Carvedilol 6.25 MG TAB PO SCH ×2 (08:26→17:17)
[2018-02-16] MEDS: Hydrochlorothiazide 25 MG TAB PO SCH (08:26)
[2018-02-16] MEDS ORDERED: Folic Acid 1 MG TAB PO SCH (09:00)
[2018-02-16] MEDS ORDERED: Magnesium Oxide 400 MG TAB PO SCH (09:00)
[2018-02-16] MEDS ORDERED: Multivitamin W/ Minerals 1 TAB PO SCH (09:00)
--- NOTE | 2018-02-16 09:25 | PDOC.FM ---
- Subjective Subjective: Patient feeling little better this AM. Tremors improved, no hallucinations. Tachycardia improved. Was NPO overnight but ready to start taking oral. NO blod in vomit and last vomit at admission. No SI/HI - Objective MAR Reviewed: Yes Vital Signs & Weight: Vital Signs (12 hours) Temp Pulse Resp BP BP Pulse Ox 02/16/18 08:26 131/92 H 02/16/18 07:29 98.9 F 82 19 96 02/16/18 07:22 98.9 F 82 19 133/92 H 96 02/16/18 04:11 130/88 02/16/18 04:03 97.6 F 101 H 18 130/88 95 02/16/18 02:15 105 H 18 126/88 96 02/16/18 00:13 138/98 H 02/16/18 00:12 99.0 F 106 H 17 138/98 H 95 02/15/18 22:14 107 H 20 137/93 H 100 Weight Weight 117.889 kg I&O: 02/15/18 02/16/18 02/17/18 06:59 06:59 06:59 Intake Total 3773 Balance 3773 Result Diagrams: 02/16/18 04:29 02/16/18 04:29 Additional Labs: Laboratory Tests 02/15/18 13:51 Lipase 38 EKG Reviewed by me: Yes Dx/Plan (1) Alcohol withdrawal syndrome Code(s): F10.239 - ALCOHOL DEPENDENCE WITH WITHDRAWAL, UNSPECIFIED Status: Acute Qualifiers: Complication of substance-induced condition: with unspecified complication Qualified Code(s): F10.239 - Alcohol dependence with withdrawal, unspecified (2) Anxiety Code(s): F41.9 - ANXIETY DISORDER, UNSPECIFIED Status: Acute (3) Depression Code(s): F32.9 - MAJOR DEPRESSIVE DISORDER, SINGLE EPISODE, UNSPECIFIED Status : Acute (4) Hx of esophageal varices Code(s): Z87.19 - PERSONAL HISTORY OF OTHER DISEASES OF THE DIGESTIVE SYSTEM Status: Acute (5) Alcoholic cirrhosis of liver Code(s): K70.30 - ALCOHOLIC CIRRHOSIS OF LIVER WITHOUT ASCITES Status: Chronic Qualifiers: Ascites presence: without ascites Qualified Code(s): K70.30 - Alcoholic cirrhosis of liver without ascites (6) Cannabis abuse Code(s): F12.10 - CANNABIS ABUSE, UNCOMPLICATED Status: Chronic (7) Chronic alcohol abuse Code(s): F10.10 - ALCOHOL ABUSE, UNCOMPLICATED Status: Chronic (8) Transaminitis Code(s): R74.0 - NONSPEC ELEV OF LEVELS OF TRANSAMNS & LACTIC ACID DEHYDRGNSE Status: Chronic - Plan Plan: 37 yr old male with alcohol abuse here for acute alcohol withdrawal alcohol withdrawal -improved, no DT symptoms but does have a hx of DT. -no SI/HI - initiate librium taper- has done well with this in the past, liver function near baseline minimal acute on chronic liver injury improved -monitor, likely can D/C later this afternoon or in the AM pending oral intake. -Needs quick f/u with [facility] and pt verbalizes understanding and has done well in the past with f/u chronic ETOH abuse - cessation counseling Alcoholic cirrhosis -hx of liver mass with previously low AFP marker in 2016 chronic pancreatitis -does not appear to be in acute pancreatitis. h.o esophageal varices - no hematemesis depression -not suicidal f/u [facility]
[2018-02-16] MEDS: chlordiazePOXIDE HCl 25 MG CAP PO SCH ×3 (13:35→21:14)
[2018-02-16] MEDS: Multivitamins, Adult 10 ML, Folic Acid 1 MG, Thiamine HCl 100 MG in Dextrose 5 %-0.45 %... IV SCH (17:27)
[2018-02-17 05:27] LABS: Eosinophils 4 % (0-10); Hemoglobin 13.7 g/dL (14.0-18.0); Lymphocytes 49 % (21-51); MDiff Complete? YES; Mean Corpuscular HGB CONC 33.6 g/dL (32.0-36.0); Mean Corpuscular Hemoglobin 30.1 pg (27.0-31.0); Mean Corpuscular Volume 89.5 fl (80.0-94.0); Mean Platelet Volume 7.9 fL (7.4-10.4); Monocytes 17 % (0-10); Neutrophil 30 % (42-75); Platelet Count 135 thou/uL (130-400); RBC Distribution Width 15.8 % (11.5-14.5); Red Blood Cell (RBC) Count 4.54 mill/uL (4.70-6.10); White Blood Cell (WBC) Count 3.8 thou/uL (4.8-10.8)
[2018-02-17 05:29] LABS: ALT (SGPT) 143 U/L (8-55); AST (SGOT) 109 U/L (5-34); Albumin 3.9 g/dL (3.5-5.0); Alkaline Phosphatase 76 U/L (40-150); Anion Gap 15 mmol/L (10-20); BUN (Urea Nitrogen) 5 mg/dL (8.9-20.6); Bilirubin, Total 1.1 mg/dL (0.2-1.2); Calc. Creatinine Clearance 209 mL/min (70-130); Calcium 8.9 mg/dL (7.8-10.44); Carbon Dioxide 23 mmol/L (22-29); Chloride 102 mmol/L (98-107); Estimated GFR-MDRD Greater than 90; Globulin 2.7 g/dL (2.4-3.5); Glucose 134 mg/dL (70-105); Potassium 3.1 mmol/L (3.5-5.1); Protein, Total 6.6 g/dL (6.0-8.3); Sodium 137 mmol/L (136-145)
--- NOTE | 2018-02-17 06:37 | PDOC.FM ---
- Subjective Subjective: Patient feeling better this AM. States he slept well. No hallucinations. Tremors nearly resolved. Eating and tolerating PO well. HR wnl. IV fluids decreased yesterday and stopped this AM. Of note: general search through patient's old records reveals CT showing liver nodularity c/w cirrhosis but not mentioned on CT 1 year later. However a CT chest/abd/pelvis in 01/2017 showed a 3.2 cm solid pleural based mass at posterior of apex of left lung. Upon questioning he states he has been told it was likely benign and there has been no further workup of mass. - Objective MAR Reviewed: Yes Vital Signs & Weight: Vital Signs (12 hours) Temp Pulse Resp BP BP Pulse Ox 02/17/18 06:07 76 18 118/79 95 02/17/18 04:16 71 18 111/83 111/83 95 02/17/18 02:18 82 18 128/80 97 02/17/18 00:36 99.0 F 102 H 16 126/85 126/85 99 02/16/18 22:23 88 16 122/84 100 02/16/18 19:30 98.5 F 92 18 136/88 02/16/18 19:02 98.5 F 92 18 116/91 H 96 Weight Weight 117.889 kg I&O: 02/15/18 02/16/18 02/17/18 06:59 06:59 06:59 Intake Total 3773 4262 Balance 3773 4262 Result Diagrams: 02/17/18 04:31 02/17/18 04:31 <Jeniffer Talbert - Last Filed: 02/17/18 08:46> - Objective Vital Signs & Weight: Vital Signs (12 hours) Temp Pulse Resp BP BP Pulse Ox 02/17/18 09:42 126/87 02/17/18 07:51 97.8 F 77 20 100 02/17/18 07:49 105/77 02/17/18 07:13 97.8 F 77 20 105/77 96 02/17/18 06:07 76 18 118/79 95 02/17/18 04:16 71 18 111/83 111/83 95 02/17/18 02:18 82 18 128/80 97 02/17/18 00:36 99.0 F 102 H 16 126/85 126/85 99 Weight Weight 117.889 kg I&O: 02/16/18 02/17/18 02/18/18 06:59 06:59 06:59 Intake Total 3773 4262 Balance 3773 4262 Result Diagrams: 02/17/18 04:31 02/17/18 04:31 <Enrike Quiles - Last Filed: 02/17/18 10:36> Phys Exam - Physical Examination Constitutional: NAD HEENT: moist MMs Respiratory: no wheezing, no rales, no rhonchi, clear to auscultation bilateral Cardiovascular: RRR, no significant murmur Gastrointestinal: soft, non-tender, no distention Musculoskeletal: no edema Neurological: normal sensation, moves all 4 limbs tremors absent Psychiatric: A&O x 3 Deviation from normal: appears reasonable with good insight <Jeniffer Talbert - Last Filed: 02/17/18 08:46> Dx/Plan (1) Alcohol withdrawal syndrome Code(s): F10.239 - ALCOHOL DEPENDENCE WITH WITHDRAWAL, UNSPECIFIED Status: Acute QualifierTitle: Complication of substance-induced condition: with unspecified complication Qualified Code(s): F10.239 - Alcohol dependence with withdrawal, unspecified (2) Anxiety Code(s): F41.9 - ANXIETY DISORDER, UNSPECIFIED Status: Acute (3) Depression Code(s): F32.9 - MAJOR DEPRESSIVE DISORDER, SINGLE EPISODE, UNSPECIFIED Status : Acute (4) Hx of esophageal varices Code(s): Z87.19 - PERSONAL HISTORY OF OTHER DISEASES OF THE DIGESTIVE SYSTEM Status: Acute (5) Alcoholic cirrhosis of liver Code(s): K70.30 - ALCOHOLIC CIRRHOSIS OF LIVER WITHOUT ASCITES Status: Chronic QualifierTitle: Ascites presence: without ascites Qualified Code(s): K70.30 - Alcoholic cirrhosis of liver without ascites (6) Cannabis abuse Code(s): F12.10 - CANNABIS ABUSE, UNCOMPLICATED Status: Chronic (7) Chronic alcohol abuse Code(s): F10.10 - ALCOHOL ABUSE, UNCOMPLICATED Status: Chronic (8) Transaminitis Code(s): R74.0 - NONSPEC ELEV OF LEVELS OF TRANSAMNS & LACTIC ACID DEHYDRGNSE Status: Chronic (9) Mass of left lung Code(s): R91.8 - OTHER NONSPECIFIC ABNORMAL FINDING OF LUNG FIELD Status: Chronic (10) Liver mass Code(s): R16.0 - HEPATOMEGALY, NOT ELSEWHERE CLASSIFIED Status: Chronic - Plan Plan: 37 yr old male with alcohol abuse here for acute alcohol withdrawal alcohol withdrawal -improved, no DT symptoms but does have a hx of DT. -no SI/HI -librium taper -likely home this afternoon -f/u [facility] this week. chronic ETOH abuse - cessation counseling Alcoholic cirrhosis -hx of liver mass with previously low AFP marker in 2016 -see liver mass below HTN -cont home meds. -well controlled chronic pancreatitis -does not appear to be in acute pancreatitis. h.o esophageal varices - no hematemesis depression -not suicidal -f/u [facility] -cont sertraline incidentally noted lung mass - since it is > 1 cm, recommend repeat imaging with CT. -discussed doing this in outpatient setting -patient has hx of good f/u, will cont workup outpatient hx of liver mass - 1.3 cm hyperdense mass ant aspect left lobe liver increased minimally in size from 09/2015 to 03/2016. - AFP marker wnl in 2016 -unclear if tumor marker has been checked since then. He has seen GI for this outpatient, records unavailable. <Jeniffer Talbert - Last Filed: 02/17/18 08:46> (1) Alcohol withdrawal syndrome Code(s): F10.239 - ALCOHOL DEPENDENCE WITH WITHDRAWAL, UNSPECIFIED Status: Acute Qualifiers: Complication of substance-induced condition: with unspecified complication Qualified Code(s): F10.239 - Alcohol dependence with withdrawal, unspecified (2) Abdominal pain Code(s): R10.9 - UNSPECIFIED ABDOMINAL PAIN Status: Acute Qualifiers: Abdominal location: epigastric Qualified Code(s): R10.13 - Epigastric pain (3) Abstinence from alcohol Code(s): Z78.9 - OTHER SPECIFIED HEALTH STATUS Status: Acute (4) Asthma Code(s): J45.909 - UNSPECIFIED ASTHMA, UNCOMPLICATED Status: Acute (5) Depression Code(s): F32.9 - MAJOR DEPRESSIVE DISORDER, SINGLE EPISODE, UNSPECIFIED Status : Acute (6) Hx of esophageal varices Code(s): Z87.19 - PERSONAL HISTORY OF OTHER DISEASES OF THE DIGESTIVE SYSTEM Status: Acute (7) Hyperbilirubinemia Code(s): E80.6 - OTHER DISORDERS OF BILIRUBIN METABOLISM Status: Acute (8) Metabolic acidosis Code(s): E87.2 - ACIDOSIS Status: Acute (9) Peripheral neuropathy Code(s): G62.9 - POLYNEUROPATHY, UNSPECIFIED Status: Acute (10) Alcoholic cirrhosis of liver Code(s): K70.30 - ALCOHOLIC CIRRHOSIS OF LIVER WITHOUT ASCITES Status: Chronic Qualifiers: Ascites presence: without ascites Qualified Code(s): K70.30 - Alcoholic cirrhosis of liver without ascites (11) Cannabis abuse Code(s): F12.10 - CANNABIS ABUSE, UNCOMPLICATED Status: Chronic (12) GERD (gastroesophageal reflux disease) Code(s): K21.9 - GASTRO-ESOPHAGEAL REFLUX DISEASE WITHOUT ESOPHAGITIS Status: Chronic (13) Transaminitis Code(s): R74.0 - NONSPEC ELEV OF LEVELS OF TRANSAMNS & LACTIC ACID DEHYDRGNSE Status: Chronic <Enrike Quiles - Last Filed: 02/17/18 10:36> Attending Addendum - Attending Addendum Date/Time: 02/17/18 1035 I personally evaluated the patient and discussed the management with Dr. Talbert. I agree with the History, Examination, Assessment and Plan documented above with any addition or exceptions noted below. Patient feeling well. No evidence of withdrawal symptoms at this time, currently on Librium taper. He has been educated again that he cannot drink alcohol while on this taper or it can result in . He agrees and reports no plans to begin drinking alcohol again. His labs are normalizing. Will be discharged home today and will follow up with Dr. Talbert in clinic later this week to assess. <Enrike Quiles - Last Filed: 02/17/18 10:36>
[2018-02-17] MEDS ORDERED: Potassium Chloride 20 MEQ TAB PO SCH (06:45)
[2018-02-17 07:14] VITALS: TEMP 97.8
[2018-02-17] MEDS ORDERED: Multivitamin W/ Minerals 1 TAB PO SCH (09:00)
[2018-02-17] MEDS ORDERED: Folic Acid 1 MG TAB PO SCH (09:00)
[2018-02-17] MEDS: Carvedilol 6.25 MG TAB PO SCH (09:42)
[2018-02-17] MEDS: chlordiazePOXIDE HCl 25 MG CAP PO SCH (09:42)
[2018-02-17] MEDS: Gabapentin 100 MG CAP PO SCH (09:43)
[2018-02-17] MEDS: Hydrochlorothiazide 25 MG TAB PO SCH (09:43)
[2018-02-17] MEDS: Pantoprazole 40 MG VIAL IVP SCH (09:43)
[2018-02-17 11:03] VITALS: BP 131/92
[2018-02-17] MEDS ORDERED: chlordiazePOXIDE HCl 25 MG CAP PO SCH (15:00)
--- NOTE | 2018-02-17 19:09 | DIS-2 ---
DATE OF ADMISSION: 02/15/2018 DATE OF DISCHARGE: 02/17/2018 ADMITTING ATTENDING: Enrike Quiles MD DISCHARGE ATTENDING: Enrike Quiles MD RESIDENT: Jeniffer Talbert MD CONSULTATIONS: None. PRIMARY DIAGNOSES: 1. Acute alcohol withdrawal. 2. Transaminitis. 3. Chronic alcohol abuse. SECONDARY DIAGNOSES: 1. Alcoholic cirrhosis. 2. Hypertension. 3. Chronic pancreatitis. 4. History of esophageal varices. 5. Depression. 6. History of incidentally noted lung mass. 7. History of liver mass. 8. Cannabis abuse. 9. Asthma. DISCHARGE MEDICATIONS: 1. Gabapentin 100 mg p.o. t.i.d. 2. Hydrochlorothiazide 25 mg p.o. q.a.m. 3. Proventil 2 puffs inhaled q.6 hours p.r.n. 4. Ventolin 3 mg nebulized q.6 hours p.r.n. 5. Zoloft 50 mg p.o. daily. 6. Nexium 40 mg p.o. q.a.m. 7. Coreg 6.25 mg p.o. b.i.d. 8. Protonix 40 mg p.o. daily. 9. Zofran 4 mg p.o. q.4 hours p.r.n. 10. Librium taper of 25 mg p.o. q.8 hours on day one; on day two, 25 mg p.o. q.12 hours; and then on day three, 25 mg p.o. once. 11. Multivitamin 1 tab p.o. daily. HISTORY OF PRESENT ILLNESS AND HOSPITAL COURSE: This is a 37-year-old male with a history of alcohol abuse as well as cirrhosis, who presented after an approximately a week-long binge drink and present ed with acute withdrawal symptoms. His last drink was approximately 20 hours prior to presentation. This morning of admission, he had nausea, vomiting, abdominal pain, diaphoresis, and tremors. The p atient did not have DTs while in the hospital. The patient was placed on Valium scheduled on day 1 o f his hospitalization and given aggressive fluid therapy and his symptoms continued to improve. He w as monitored until 65 hours post last drink, and did not have any evidence of hallucinations or tremo rs. The patient had been on his Librium taper for over a day at the time of discharge. The patient was informed of the need to remain sober while using Librium taper or it could result in his . He was agreeable to this plan and stated that he would remain sober. The patient has been on this re gimen several times in the past. Followup on a few things relatively unrelated to this hospitalization was noted. He has an incidenta lly noted lung mass obtained in the ER about an year ago. This was discussed with the patient and gavin van to follow up in the outpatient setting, to have followup CT scan of this. An AFP was also drawn as the patient does have a history of liver mass that had been monitored with t he AFP value. Otherwise, the patient did good during his hospitalization. The patient was not suicidal and his hig h blood pressure was well controlled throughout the hospitalization. DISPOSITION: Stable. DISCHARGE INSTRUCTIONS: 1. Location: Home. 2. Activity: As tolerated. 3. Diet: Regular. 4. Follow up with primary care physician at [facility] within 2-3 days of discharge.
--- NOTE | 2018-02-18 20:10 | EKG ---
Test Reason : Blood Pressure : / mmHG Vent. Rate : 082 BPM Atrial Rate : 082 BPM P-R Int : 148 ms QRS Dur : 100 ms QT Int : 408 ms P-R-T Axes : 067 059 069 degrees QTc Int : 476 ms Normal sinus rhythm with sinus arrhythmia Normal ECG When compared with ECG of 15-FEB-2018 13:49, (Unconfirmed) Nonspecific T wave abnormality, improved in Anterolateral leads Confirmed by CHELA WANG (2) on 02/18/2018 8:10:20 PM Referred By: DOMINGA Confirmed By:CHELA WANG
== END 2018-02-17 12:58 | disposition home or self-care (01) | DRG 897 ==
LOC: ERS 13:32 → IMCU/EMU 16:23
PROVIDERS: ADMIT Student in an Organized Health Care Education/Training Program; ATTEND Student in an Organized Health Care Education/Training Program
DX: F10.239 Alcohol dependence with withdrawal, unspecified (principal); K86.0 Alcohol-induced chronic pancreatitis; R74.0 Nonspecific elevation of levels of transaminase and lactic acid dehydrogenase [LDH]; K70.30 Alcoholic cirrhosis of liver without ascites; I10 Essential (primary) hypertension; F32.9 Major depressive disorder, single episode, unspecified; J45.909 Unspecified asthma, uncomplicated; F12.10 Cannabis abuse, uncomplicated; F41.9 Anxiety disorder, unspecified; R16.0 Hepatomegaly, not elsewhere classified; E80.6 Other disorders of bilirubin metabolism; G62.9 Polyneuropathy, unspecified; Z87.891 Personal history of nicotine dependence; Y90.2 Blood alcohol level of 40-59 mg/100 ml
CPT/HCPCS: 36415; 80053; 80306; 80307; 81003; 81015; 82105; 82140; 82553; 83690; 83735; 84443; 84484; 85025; 85610; 85730; 93005; 93010; 94760; 96374; J2060; J3411; J3475; J7042; J7050; J7120

== ENCOUNTER 2018-03-20 15:07 | Outpatient (CLI) | payer OTHER ==
[2018-03-20 15:41] LABS: Hemoglobin 13.2 g/dL (14.0-18.0); Mean Corpuscular Hemoglobin 30.4 pg (27.0-31.0); Mean Corpuscular Volume 89.3 fl (80.0-94.0); Mean Platelet Volume 8.5 fL (7.4-10.4); Platelet Count 175 thou/uL (130-400); RBC Distribution Width 15.2 % (11.5-14.5); Red Blood Cell (RBC) Count 4.35 mill/uL (4.70-6.10); White Blood Cell (WBC) Count 4.9 thou/uL (4.8-10.8)
[2018-03-20 16:00] LABS: ALT (SGPT) 269 U/L (8-55); AST (SGOT) 168 U/L (5-34); Albumin 4.6 g/dL (3.5-5.0); Alkaline Phosphatase 70 U/L (40-150); Anion Gap 14 mmol/L (10-20); BUN (Urea Nitrogen) 15 mg/dL (8.9-20.6); Bilirubin, Total 0.8 mg/dL (0.2-1.2); Calc. Creatinine Clearance 0 mL/min (70-130); Calcium 9.6 mg/dL (7.8-10.44); Carbon Dioxide 29 mmol/L (22-29); Chloride 99 mmol/L (98-107); Estimated GFR-MDRD 73; Globulin 2.8 g/dL (2.4-3.5); Glucose 119 mg/dL (70-105); Protein, Total 7.4 g/dL (6.0-8.3); Sodium 139 mmol/L (136-145)
[2018-03-20 16:16] LABS: Band 3 % (5-11); Eosinophils 3 % (0-10); Lymphocytes 24 % (21-51); MDiff Complete? YES; Monocytes 14 % (0-10); Neutrophil 54 % (42-75); PLT Morphology Comment Appears Adequate; RBC Morphology Normal; Reactive Lymphocytes 1 % (0-10)
== END 2018-03-20 15:08 | disposition home or self-care (01) ==
LOC: LABBT 15:07
PROVIDERS: ATTEND Specialist
DX: Z01.812 Encounter for preprocedural laboratory examination (principal); K82.8 Other specified diseases of gallbladder
CPT/HCPCS: 80053; 85025

== ENCOUNTER 2018-03-24 08:08 | Day surgery (SDC) | payer OTHER ==
[2018-03-20 15:37] VITALS: BMI 35.2
[2018-03-24] MEDS ORDERED: CEFAZOLIN/Water 2 GM/20 ML SYRINGE ONE (09:16)
[2018-03-24] MEDS ORDERED: Ketorolac Tromethamine 30 MG/ML VIAL ONE (09:16)
[2018-03-24] MEDS ORDERED: Bupivacaine/Epinephrine 0.25% 30 ML VIAL ONE (09:52)
[2018-03-24] MEDS ORDERED: Fentanyl 250 MCG/5 ML VIAL ONE (09:59)
[2018-03-24] MEDS ORDERED: Midazolam HCl 2 mg/2 ml Vial ONE (10:03)
[2018-03-24] MEDS ORDERED: Fentanyl 100 MCG/2 ML VIAL ONE ×2 (11:47→12:11)
--- NOTE | 2018-03-25 06:10 | OP ---
DATE OF PROCEDURE: 03/24/2018 PREOPERATIVE DIAGNOSIS: Symptomatic gallbladder sludge. POSTOPERATIVE DIAGNOSIS: Symptomatic gallbladder sludge. OPERATION PERFORMED: Laparoscopic cholecystectomy. SURGEON: Darius Ramirez M.D. ANESTHESIA: General endotracheal. INDICATIONS: The patient is a 37-year-old white male. He has a history of alcoholism, hepatitis and pancreatitis. He has documented gallbladder sludge and symptoms referable to gallbladder. He is ta pancho to the operating at this time for a laparoscopic cholecystectomy. PROCEDURE IN DETAIL: Informed consent was obtained. The patient was taken to the operating room whe re general endotracheal anesthesia was obtained with the patient in the supine position. The abdomen was prepped with Betadine and draped in the usual sterile fashion. Quarter percent Marcaine with ep inephrine was infiltrated below the umbilicus and a 10 mm infraumbilical incision was created. A Arturo ess needle was passed through this incision into the peritoneal cavity. A pneumoperitoneum was estab lished using carbon dioxide up to a pressure of 15 mmHg. Local anesthetic was infiltrated and three additional 5 mm right upper quadrant incisions were created. Through the mid incision, a 5 mm port w as passed into the peritoneal cavity. The camera was passed through this port and under direct visio n, an 11 port is passed through the infraumbilical incision. The camera was replaced through this port, and under dir ect vision, two additional 5 mm ports were passed through the incisions already created. The gallbladder was grasped and retracted in a cephalad direction. Minimal adhesions were bluntly st ripped away from the apex of the gallbladder, and the apex was retracted laterally and inferiorly. C areful dissection was carried out to the apex of the gallbladder to identify the cystic duct and cyst ic artery. These were each carefully dissected circumferentially. The duct was of normal caliber. Both the duct and the artery were divided between clips leaving two on the side to remain within the abdomen. The gallbladder was then dissected out of the gallbladder fossa using electrocautery and re moved through the infraumbilical port site. The fascia was closed with 0 Vicryl suture and a GraNee needle. The right upper quadrant was inspected and irrigated. All irrigant was aspirated. All port s and instruments were removed under direct vision. Pneumoperitoneum was carefully evacuated. Addit ional local anesthetic was infiltrated into each port site. The skin edges were approximated with 4- 0 Monocryl subcuticular sutures, and Dermabond was placed externally. There were no complications. The patient tolerated the procedure well and was taken to the Recovery Room in stable condition. FINDINGS: The liver was without significant cirrhotic change. There was fatty liver change. There was no significant gallbladder inflammatory change, although there were adhesions to the gallbladder. The duct was small and noninflamed. Cholangiogram was not obtained. Meticulous hemostasis maintai garo with electrocautery. There were no complications. The patient tolerated the procedure well and was taken to recovery room in stable condition.
== END 2018-03-24 13:46 | disposition home or self-care (01) ==
LOC: SDC 08:08
PROVIDERS: ATTEND Specialist
PROC: 0FT44ZZ Resection of Gallbladder, Percutaneous Endoscopic Approach (ICD-10-PCS; principal; 2018-03-24)
DX: K81.1 Chronic cholecystitis (principal); G62.9 Polyneuropathy, unspecified; J45.909 Unspecified asthma, uncomplicated; K85.90 Acute pancreatitis without necrosis or infection, unspecified; Z79.899 Other long term (current) drug therapy
CPT/HCPCS: 88304; 96374; J0131; J1885; J2250; J3010

== ENCOUNTER 2018-04-04 12:50 | Observation (INO) | payer OTHER, SELFPAY ==
[2018-04-04] MEDS ORDERED: Lorazepam 2 MG/ML VIAL ONE (13:20)
[2018-04-04] MEDS ORDERED: Multivitamins, Adult 10 ML, Thiamine HCl 100 MG, Folic Acid 1 MG in Dextrose 5 %-0.45 %... IV SCH (13:45)
[2018-04-04 14:00] LABS: Hemoglobin 15.6 g/dL (14.0-18.0); Mean Corpuscular HGB CONC 33.7 g/dL (32.0-36.0); Mean Corpuscular Hemoglobin 29.6 pg (27.0-31.0); Mean Corpuscular Volume 87.6 fL (78.0-98.0); Mean Platelet Volume 7.1 fL (7.4-10.4); Platelet Count 245 thou/uL (130-400); RBC Distribution Width 15.6 % (11.5-14.5); Red Blood Cell (RBC) Count 5.29 mill/uL (4.70-6.10); White Blood Cell (WBC) Count 4.8 thou/uL (4.8-10.8)
[2018-04-04 14:15] LABS: Band 10 % (5-11); Lymphocytes 19 % (21-51); MDiff Complete? YES; Monocytes 14 % (0-10); Neutrophil 53 % (42-75); PLT Morphology Comment Appears Adequate; RBC Morphology Normal; Reactive Lymphocytes 1 % (0-10)
[2018-04-04 14:23] LABS: Acetaminophen Less than 6.0 mcg/mL (10.0-30.0); Alcohol Less than 10 mg/dL (Less than 10); Salicylate Less than 8.0 mg/dL (15.0-30.0)
[2018-04-04 14:29] LABS: ALT (SGPT) 297 U/L (8-55); AST (SGOT) 310 U/L (5-34); Albumin 5.1 g/dL (3.5-5.0); Alkaline Phosphatase 82 U/L (40-150); Anion Gap 30 mmol/L (10-20); BUN (Urea Nitrogen) 10 mg/dL (8.9-20.6); Bilirubin, Total 1.4 mg/dL (0.2-1.2); CK (CPK) 134 U/L (30-200); Calc. Creatinine Clearance 0 mL/min (70-130); Calcium 11.9 mg/dL (7.8-10.44); Carbon Dioxide 17 mmol/L (22-29); Chloride 94 mmol/L (98-107); Estimated GFR-MDRD 70; Globulin 3.2 g/dL (2.4-3.5); Glucose 88 mg/dL (70-105); Potassium 4.1 mmol/L (3.5-5.1); Protein, Total 8.3 g/dL (6.0-8.3); Sodium 137 mmol/L (136-145)
[2018-04-04 15:27] LABS: Bilirubin Moderate (Negative); Blood, Urine Negative (Negative); Clarity CLEAR (Clear); Glucose, Urine (Dipstick) Negative (Negative); Leukocyte Negative (Negative); Nitrite Negative (Negative); Protein, Urine (Dipstick) 30 mg/dL (Neg-Trace); Specific Gravity, Urine 1.022 (1.002-1.036)
[2018-04-04 15:29] LABS: Bacteria/HPF None Seen HPF (None Seen); Pathc Cast-AUWi Flag 1.59 (0-2.49); RBC/HPF 0-3 HPF (0-3); Squamous Epithelial 0-3 HPF (0-3); WBC/HPF 0-3 HPF (0-3)
[2018-04-04 15:38] LABS: Medtox Reader # READER 1
[2018-04-04 15:39] LABS: Amphetamine Not Detected (NotDetected); Barbiturates Screen Not Detected (NotDetected); Benzodiazepine Screen Detected (NotDetected); Cocaine Metabolite Screen Not Detected (NotDetected); Medtox Control Line Valid? VALID (VALID); Methadone Not Detected (NotDetected); Methamphetamine Not Detected (NotDetected); Opiate Screen Not Detected (NotDetected); Oxycodone Screen Not Detected (NotDetected); Phencyclidine (PCP) Not Detected (NotDetected); THC/Cannabinoid Screen Detected (NotDetected); Tricyclic Screen Not Detected (NotDetected)
[2018-04-04 15:46] LABS: Crystals/HPF 2+ CA OXALATE HPF (Negative); Hyaline Casts/LPF 4-6 HYALINE CAST LPF (0-3 Hyaline)
[2018-04-04 16:11] VITALS: BMI 33.5
--- NOTE | 2018-04-04 16:14 | PDOC.FPRHP ---
- History of Present Illness Chief Complaint: alcohol withdrawal History of Present Illness: Resident: Pineda Blas MD PCP: Jeniffer Talbert MD Attending: Weston Garvin MD Thierry Archer is a 37 year old male with a PMH of cirrhosis 2/2 alcohol abuse , alcoholic hepatitis, chronic pancreatitis who presented to the ED for alcohol withdrawal. Patient has had multiple admissions for alcohol withdrawal in the past, last admission was on 02/15/18. After that admission, he was discharged with a librium taper and he remained sober for 3 weeks. Patient states that he has had a rough week because his father just retired and he also had two cats that earlier in the week and it has been stressful for him. His drink of choice is vodka and he has been drinking a 1/5th of vodka a day, sometimes more , since friday, 6 days ago. His last drink was around midnight the night before arriving to the ED, about 13 hour HOROLOGIST. Patient states that he started developing similar symptoms of withdrawal at around 10 am this morning, he had n /v, tremors, and abd pain. Since that time, he has also developed some visual and auditory hallucinations. In the ED, patient states that he is seeing lines and squiggles in his vision and he is hearing voices. He denies any other complaints, symptoms, recent illnesses. He had a cholecystectomy about 2 weeks prior to admission. Denies fever, chills, night sweats, abdominal pain, changes in his BMs prior to today. ED Course: In the ED, he received 1 L banana bag, 1 L NS, and 1 mg lorazepam, which improved his symptoms - Allergies/Adverse Reactions Allergies Allergy/AdvReac Type Severity Reaction Status Date / Time No Known Allergies Allergy Verified 03/20/18 15:10 - Home Medications Medication Instructions Recorded Confirmed Type Gabapentin 100 mg PO TID 04/26/15 04/04/18 History Hydrochlorothiazide 25 mg PO QAM #0 tab 04/02/16 04/04/18 Rx ALButerol Sulfate [Ventolin Neb] 3 ml NEB Q6HR PRN 08/19/16 04/04/18 History Albuterol Sulfate [Proventil Hfa] 2 puff INH Q6H PRN 08/19/16 04/04/18 History Carvedilol [Coreg] 6.25 mg PO BID-WM 12/28/17 04/04/18 History Esomeprazole Magnesium [NexIUM] 40 mg PO QAM-WM 12/28/17 04/04/18 History Ondansetron [Zofran ODT] 4 mg PO Q4HR PRN 04/04/18 04/04/18 History - History PMHx: 1) Cirrhosis 2) Alcoholic Hepatitis 3) Chronic Pancreatitis 4) Spinal Stenosis 5) Peripheral Neuropathy 6) Depression 7) Anxiety 8) Asthma 9) HTN PSHx: 1) Cholecystectomy 2 weeks ago 2) L arm tendon repair 3) B/l cosmetic ear repair 4) Paracentesis FHx: noncontributory Social: Drinks 1/5th of vodka per day for the last 6 days, multiple relapses in alcoholism, denies tobacco or drug use - Review of Systems General: denies: fever/chills, weight/appetite/sleep changes, night sweats, fatigue Eyes: denies: eye pain, vision changes ENT: denies: nasal congestion, rhinorrhea Respiratory: denies: cough, congestion, shortness of breath, exercise intolerance Cardiovascular: denies: chest pain, palpitation, edema, paroxysmal nocturnal dyspnea, orthopnea Gastrointestinal: reports: nausea, vomiting, abdominal pain. denies: diarrhea, constipation, GI bleeding Genitourinary: denies: incontinence, dysuria, polyuria, discharge Skin: denies: rashes, lesions, jaundice, itching Musculoskeletal: denies: pain, tenderness, stiffness, swelling, arthritis/ arthralgias Neurological: reports: other (tremors). denies: numbness, syncope, seizure, weakness Psychological: reports: anxiety, depression - Vital signs BP: 143/97 HR: 98 RR: 20 Tmax: 98.0 Pox: 98% on RA Wt: 122 kg - Physical Exam Constitutional: NAD, awake, alert and oriented, well developed, other (tremulous ) HEENT: normocephalic and atraumatic, PERRLA, EOMI, conjunctiva clear, no scleral icterus, grossly normal vision, TM's clear and intact, grossly normal hearing, normal nasal mucosa, MMM, oropharynx clear Neck: supple, FROM, trachea midline, no JVD Chest: no-tender to palpation, no lesions Heart: RRR, normal S1/S2, no murmurs/rubs/gallops Lungs: CTAB, no respiratory distress, good air movement Abdomen: soft, non-tender, bowel sounds present, no masses/distention, other ( mild fluid wave) Musculoskeletal: normal structure, normal tone, ROM grossly normal Neurological: no focal deficit, CN II-XII intact, normal sensation, other ( tremors) Skin: no rash/lesions, good turgor, capillary refill <2 seconds Heme/Lymphatic: no unusual bruising or bleeding Psychiatric: normal mood and affect, intact recent and remote memory FMR H&P: Results - Labs Result Diagrams: 04/04/18 13:10 04/04/18 13:10 Lab results: WBC 4.8 thou/uL (4.8-10.8) 04/04/18 13:10 Hgb 15.6 g/dL (14.0-18.0) 04/04/18 13:10 Hct 46.3 % (42.0-52.0) 04/04/18 13:10 MCV 87.6 fL (78.0-98.0) 04/04/18 13:10 Plt Count 245 thou/uL (130-400) 04/04/18 13:10 Band Neuts % (Manual) 10 % (5-11) 04/04/18 13:10 Sodium 137 mmol/L (136-145) 04/04/18 13:10 Potassium 4.1 mmol/L (3.5-5.1) 04/04/18 13:10 Chloride 94 mmol/L (98-107) L 04/04/18 13:10 Carbon Dioxide 17 mmol/L (22-29) L 04/04/18 13:10 BUN 10 mg/dL (8.9-20.6) 04/04/18 13:10 Creatinine 1.16 mg/dL (0.6-1.3) 04/04/18 13:10 Glucose 88 mg/dL (70-105) 04/04/18 13:10 Calcium 11.9 mg/dL (7.8-10.44) H 04/04/18 13:10 Total Bilirubin 1.4 mg/dL (0.2-1.2) H 04/04/18 13:10 AST 310 U/L (5-34) H 04/04/18 13:10 ALT 297 U/L (8-55) H 04/04/18 13:10 Alkaline Phosphatase 82 U/L (40-150) 04/04/18 13:10 Creatine Kinase 134 U/L (30-200) 04/04/18 13:10 Serum Total Protein 8.3 g/dL (6.0-8.3) 04/04/18 13:10 Albumin 5.1 g/dL (3.5-5.0) H 04/04/18 13:10 Urine Ketones > or equal to 80 mg/dL (Negative) H 04/04/18 15:18 Urine Blood Negative (Negative) 04/04/18 15:18 Urine Nitrite Negative (Negative) 04/04/18 15:18 Ur Leukocyte Esterase Negative (Negative) 04/04/18 15:18 Urine RBC 0-3 HPF (0-3) 04/04/18 15:18 Urine WBC 0-3 HPF (0-3) 04/04/18 15:18 Ur Squamous Epith Cells 0-3 HPF (0-3) 04/04/18 15:18 Urine Bacteria None Seen HPF (None Seen) 04/04/18 15:18 - EKG Interpretation EKG: sinus tachycardia FMR H&P: A/P - Problem List (1) Acute alcoholic hallucinosis Current Visit: Yes Status: Acute Code(s): F10.951 - ALCOHOL USE, UNSP W ALCOH-INDUCE PSYCH DISORDER W HALLUCIN (2) Alcohol withdrawal syndrome Current Visit: No Status: Acute Code(s): F10.239 - ALCOHOL DEPENDENCE WITH WITHDRAWAL, UNSPECIFIED Qualifiers: Complication of substance-induced condition: with unspecified complication Qualified Code(s): F10.239 - Alcohol dependence with withdrawal, unspecified (3) Abstinence from alcohol Current Visit: No Status: Acute Code(s): Z78.9 - OTHER SPECIFIED HEALTH STATUS (4) Anxiety Current Visit: No Status: Chronic Code(s): F41.9 - ANXIETY DISORDER, UNSPECIFIED (5) Asthma Current Visit: No Status: Chronic Code(s): J45.909 - UNSPECIFIED ASTHMA, UNCOMPLICATED (6) Depression Current Visit: No Status: Chronic Code(s): F32.9 - MAJOR DEPRESSIVE DISORDER , SINGLE EPISODE, UNSPECIFIED (7) Hx of esophageal varices Current Visit: No Status: Chronic Code(s): Z87.19 - PERSONAL HISTORY OF OTHER DISEASES OF THE DIGESTIVE SYSTEM (8) Peripheral neuropathy Current Visit: No Status: Chronic Code(s): G62.9 - POLYNEUROPATHY, UNSPECIFIED (9) GERD (gastroesophageal reflux disease) Current Visit: No Status: Chronic Code(s): K21.9 - GASTRO-ESOPHAGEAL REFLUX DISEASE WITHOUT ESOPHAGITIS (10) Hypertension Current Visit: No Status: Chronic Code(s): I10 - ESSENTIAL (PRIMARY) HYPERTENSION (11) Transaminitis Current Visit: No Status: Chronic Code(s): R74.0 - NONSPEC ELEV OF LEVELS OF TRANSAMNS & LACTIC ACID DEHYDRGNSE - Plan 1) Alcohol Withdrawal Syndrome: - hx of multiple admissions for alcohol withdrawal, last drink 13 hours HOROLOGIST - Place on Tele/Obs - ASE protocol, benzos prn - Continue thiamine, folate, IVFs - hx of esophageal varices and ibis villegas tear, monitors symptoms. Start protonix, pepcid, and zofran for nausea - Check PT/PTT/INR to calculate MELD 2) Anion Gap Metabolic Acidosis - 2/2 alcohol abuse - continue to monitor 3) Alcoholic hepatitis - Transaminases more elevated than last admission - continue to monitor 4) Depression/anxiety - Continue home meds 5) Asthma - home meds 6) Alcohol abuse - marriage counselor minister cessation - discuss inpatient rehab with patient 7) HTN - continue home meds CODE STATUS: FULL CODE Disposition/LOS: Place on tele/obs, anticipate discharge home or inpatient rehab after admission FMR H&P: Upper Level - Plan Date/Time: 04/04/18 1613 I, [], have evaluated this patient and agree with findings/plan as outlined by rn internship resident. Pertinent changes/additions are listed here. Attending Addendum - Attending Addendum Date/Time: 04/04/18 1525 I personally evaluated the patient and discussed the management with Dr. Blas I agree with the History, Examination, Assessment and Plan documented above with any addition or exceptions noted below.Patient with alcoholism with secondary cirrhosis recent heavy vodka consumption seen with auditory hallucinations and placed in observation for withdrawal precautions expectant management. Patient with prior sobriety for extended periods he is aware he cannot continue to abuse alcohol without significant life altering consequences.
[2018-04-04] MEDS ORDERED: Ondansetron HCl/PF 4 MG/2 ML Vial IVP PRN (16:19)
[2018-04-04 16:46] LABS: INR-International Normal Ratio 1.1; Prothrombin Time 14.3 SEC (12.0-14.7)
--- NOTE | 2018-04-04 17:14 | PDOC.EVN ---
Attending Addendum - Attending Addendum Date/Time: 04/04/18 6728 I personally evaluated the patient and discussed the management with Dr. [] I agree with the History, Examination, Assessment and Plan documented above with any addition or exceptions noted below.
[2018-04-04] MEDS: chlordiazePOXIDE HCl 25 MG CAP PO SCH (20:18)
[2018-04-04] MEDS: Famotidine 20 MG TAB PO SCH (20:19)
[2018-04-04] MEDS: Sodium Chloride 0.9% 1,000 ML IV SCH (20:55)
[2018-04-04] MEDS ORDERED: chlordiazePOXIDE HCl 25 MG CAP PO SCH (21:00)
[2018-04-05] MEDS: Sodium Chloride 0.9% 1,000 ML IV SCH ×4 (03:28→23:47)
[2018-04-05 04:45] LABS: #Eosinphils 0.1 thou/uL (0.0-0.7); #Lymphocytes 1.9 thou/uL (1.20-3.40); #Monocytes 0.6 thou/uL (0.11-0.59); #Neutrophils 1.7 thou/uL (1.40-6.50); %Basophils 0.9 % (0.0-1.0); %Eosinophils 2.8 % (0.0-10.0); %Monocytes 13.3 % (0.0-10.0); Mean Corpuscular Hemoglobin 29.5 pg (27.0-31.0); Mean Corpuscular Volume 89.3 fL (78.0-98.0); Mean Platelet Volume 7.3 fL (7.4-10.4); Platelet Count 150 thou/uL (130-400); RBC Distribution Width 15.2 % (11.5-14.5); White Blood Cell (WBC) Count 4.4 thou/uL (4.8-10.8)
[2018-04-05 05:05] LABS: ALT (SGPT) 194 U/L (8-55); AST (SGOT) 175 U/L (5-34); Albumin 4.1 g/dL (3.5-5.0); Alkaline Phosphatase 61 U/L (40-150); Anion Gap 13 mmol/L (10-20); BUN (Urea Nitrogen) 9 mg/dL (8.9-20.6); Bilirubin, Total 1.4 mg/dL (0.2-1.2); Calc. Creatinine Clearance 166 mL/min (70-130); Calcium 9.6 mg/dL (7.8-10.44); Carbon Dioxide 30 mmol/L (22-29); Chloride 99 mmol/L (98-107); Estimated GFR-MDRD 83; Globulin 2.6 g/dL (2.4-3.5); Glucose 86 mg/dL (70-105); Potassium 3.3 mmol/L (3.5-5.1); Protein, Total 6.7 g/dL (6.0-8.3); Sodium 139 mmol/L (136-145)
[2018-04-05] MEDS ORDERED: Potassium Chloride 20 MEQ TAB PO SCH (07:00)
--- NOTE | 2018-04-05 07:56 | PDOC.FM ---
- Subjective Subjective: No acute events overnight. Reports minimal tremors and denies cp, sob, tactile/ visual and auditory hallucinations. Feels overall improved from yesterday. - Objective Vital Signs & Weight: Vital Signs (12 hours) Temp Pulse Resp BP BP Pulse Ox 04/05/18 04:00 138/91 H 04/05/18 03:24 98.8 F 85 21 H 138/91 H 96 04/05/18 00:00 133/91 H 04/04/18 23:38 98.8 F 97 19 133/91 H 96 04/04/18 20:21 154/102 H 04/04/18 19:58 99.2 F 94 18 Weight Weight 116.936 kg I&O: 04/04/18 04/05/18 04/06/18 06:59 06:59 06:59 Intake Total 2440 Balance 2440 Result Diagrams: 04/05/18 04:12 04/05/18 04:12 <Siddharth Cardona - Last Filed: 04/05/18 07:54> - Objective Vital Signs & Weight: Vital Signs (12 hours) Temp Pulse Resp BP BP Pulse Ox 04/05/18 10:06 98.9 F 86 16 149/103 H 95 04/05/18 08:00 98.4 F 86 16 149/103 H 95 04/05/18 04:00 138/91 H 04/05/18 03:24 98.8 F 85 21 H 138/91 H 96 04/05/18 00:00 133/91 H 04/04/18 23:38 98.8 F 97 19 133/91 H 96 Weight Weight 116.936 kg I&O: 04/04/18 04/05/18 04/06/18 06:59 06:59 06:59 Intake Total 2440 Balance 2440 Result Diagrams: 04/05/18 04:12 04/05/18 04:12 <Weston Garvin - Last Filed: 04/05/18 11:07> Phys Exam - Physical Examination Constitutional: NAD HEENT: PERRLA Neck: no nodes, no JVD Respiratory: no wheezing, no rales, no rhonchi, clear to auscultation bilateral Cardiovascular: RRR, no significant murmur, no rub Gastrointestinal: soft, non-tender, no distention, positive bowel sounds Musculoskeletal: no edema, pulses present Neurological: non-focal, moves all 4 limbs Psychiatric: normal affect, A&O x 3 Skin: no rash, cap refill <2 seconds <Siddharth Cardona - Last Filed: 04/05/18 07:54> Dx/Plan (1) Acute alcoholic hallucinosis Code(s): F10.951 - ALCOHOL USE, UNSP W ALCOH-INDUCE PSYCH DISORDER W HALLUCIN Status: Acute (2) Abstinence from alcohol Code(s): Z78.9 - OTHER SPECIFIED HEALTH STATUS Status: Acute (3) Alcohol withdrawal syndrome Code(s): F10.239 - ALCOHOL DEPENDENCE WITH WITHDRAWAL, UNSPECIFIED Status: Acute QualifierTitle: Complication of substance-induced condition: with unspecified complication Qualified Code(s): F10.239 - Alcohol dependence with withdrawal, unspecified (4) Hypokalemia Code(s): E87.6 - HYPOKALEMIA Status: Acute (5) Asthma Code(s): J45.909 - UNSPECIFIED ASTHMA, UNCOMPLICATED Status: Chronic (6) ETOH abuse Code(s): F10.10 - ALCOHOL ABUSE, UNCOMPLICATED Status: Chronic (7) GERD (gastroesophageal reflux disease) Code(s): K21.9 - GASTRO-ESOPHAGEAL REFLUX DISEASE WITHOUT ESOPHAGITIS Status: Chronic (8) Hypertension Code(s): I10 - ESSENTIAL (PRIMARY) HYPERTENSION Status: Chronic - Plan Plan: 1) Alcohol Withdrawal Syndrome: - currently improved from yesterday - cont libreium taper - pt had relapse and has been drinking for 1 week 2) Anion Gap Metabolic Acidosis, resolved -IVF NS 3) Alcoholic hepatitis - Transaminases more elevated than last admission - continue to monitor - 2/2 acute alcoholic hepatitis vs alcoholic steatohepatitis. trend, IVF 4) Depression/anxiety - Continue home meds 5) Asthma - home meds 6) Alcohol abuse - claims counsel cessation - discuss inpatient rehab with patient 7) HTN - continue home meds DISPO: Slightly improved from yesterday, cont obs, likely DC tomorrow if VSS and no evidence of hallucinosis <Siddharth Cadrona - Last Filed: 04/05/18 07:54> (1) Acute alcoholic hallucinosis Code(s): F10.951 - ALCOHOL USE, UNSP W ALCOH-INDUCE PSYCH DISORDER W HALLUCIN Status: Acute (2) Alcohol withdrawal syndrome Code(s): F10.239 - ALCOHOL DEPENDENCE WITH WITHDRAWAL, UNSPECIFIED Status: Acute Qualifiers: Complication of substance-induced condition: with unspecified complication Qualified Code(s): F10.239 - Alcohol dependence with withdrawal, unspecified (3) Abstinence from alcohol Code(s): Z78.9 - OTHER SPECIFIED HEALTH STATUS Status: Acute (4) Anxiety Code(s): F41.9 - ANXIETY DISORDER, UNSPECIFIED Status: Chronic (5) Asthma Code(s): J45.909 - UNSPECIFIED ASTHMA, UNCOMPLICATED Status: Chronic (6) Depression Code(s): F32.9 - MAJOR DEPRESSIVE DISORDER, SINGLE EPISODE, UNSPECIFIED Status : Chronic (7) Hx of esophageal varices Code(s): Z87.19 - PERSONAL HISTORY OF OTHER DISEASES OF THE DIGESTIVE SYSTEM Status: Chronic (8) Peripheral neuropathy Code(s): G62.9 - POLYNEUROPATHY, UNSPECIFIED Status: Chronic (9) GERD (gastroesophageal reflux disease) Code(s): K21.9 - GASTRO-ESOPHAGEAL REFLUX DISEASE WITHOUT ESOPHAGITIS Status: Chronic (10) Hypertension Code(s): I10 - ESSENTIAL (PRIMARY) HYPERTENSION Status: Chronic (11) Transaminitis Code(s): R74.0 - NONSPEC ELEV OF LEVELS OF TRANSAMNS & LACTIC ACID DEHYDRGNSE Status: Chronic <Weston Garvin - Last Filed: 04/05/18 11:07> Attending Addendum - Attending Addendum Date/Time: 04/05/18 1106 I personally evaluated the patient and discussed the management with Dr. Cardona I agree with the History, Examination, Assessment and Plan documented above with any addition or exceptions noted below.Continue observation librium taper and explore inpatient verse outpatient rehab possibilities as patient desires. <Weston Garvin - Last Filed: 04/05/18 11:07>
[2018-04-05] MEDS: chlordiazePOXIDE HCl 25 MG CAP PO SCH ×3 (09:10→21:04)
[2018-04-05] MEDS: Famotidine 20 MG TAB PO SCH ×2 (09:10→21:03)
[2018-04-06] MEDS ORDERED: Diazepam 5 MG TAB PO SCH (00:15)
[2018-04-06 04:44] LABS: #Basophils 0.1 thou/uL (0.0-0.2); #Eosinphils 0.2 thou/uL (0.0-0.7); #Lymphocytes 2.2 thou/uL (1.20-3.40); #Monocytes 0.5 thou/uL (0.11-0.59); #Neutrophils 1.8 thou/uL (1.40-6.50); %Basophils 1.4 % (0.0-1.0); %Eosinophils 4.9 % (0.0-10.0); %Lymphocytes 46.1 % (21.0-51.0); %Monocytes 10.4 % (0.0-10.0); %Neutrophils 37.2 % (42.0-75.0); Hemoglobin 13.3 g/dL (14.0-18.0); Mean Corpuscular HGB CONC 32.5 g/dL (32.0-36.0); Mean Corpuscular Hemoglobin 29.2 pg (27.0-31.0); Mean Corpuscular Volume 89.7 fL (78.0-98.0); Mean Platelet Volume 7.2 fL (7.4-10.4); Platelet Count 133 thou/uL (130-400); RBC Distribution Width 14.8 % (11.5-14.5); Red Blood Cell (RBC) Count 4.56 mill/uL (4.70-6.10); White Blood Cell (WBC) Count 4.8 thou/uL (4.8-10.8)
[2018-04-06 04:55] LABS: ALT (SGPT) 148 U/L (8-55); AST (SGOT) 111 U/L (5-34); Albumin 3.9 g/dL (3.5-5.0); Alkaline Phosphatase 60 U/L (40-150); Anion Gap 14 mmol/L (10-20); BUN (Urea Nitrogen) 7 mg/dL (8.9-20.6); Bilirubin, Total 1.3 mg/dL (0.2-1.2); Calc. Creatinine Clearance 210 mL/min (70-130); Calcium 8.6 mg/dL (7.8-10.44); Carbon Dioxide 28 mmol/L (22-29); Chloride 103 mmol/L (98-107); Estimated GFR-MDRD Greater than 90; Globulin 2.6 g/dL (2.4-3.5); Glucose 85 mg/dL (70-105); Potassium 3.5 mmol/L (3.5-5.1); Protein, Total 6.5 g/dL (6.0-8.3); Sodium 141 mmol/L (136-145)
--- NOTE | 2018-04-06 05:31 | PDOC.FM ---
- Subjective Subjective: Pt reports continued improvement to motor tremors and visual hallucinations. He is feeling better today but continues to have muscle aches, headaches, diarrhea , and nausea with meals. Denies chest pain, shortness of breath, and vomiting - Objective Vital Signs & Weight: Vital Signs (12 hours) Temp Pulse Resp BP BP Pulse Ox 04/06/18 04:06 97.7 F 91 21 H 135/97 H 96 04/06/18 04:00 135/97 H 04/06/18 00:00 98.0 F 91 18 122/81 122/81 95 04/05/18 20:00 98.3 F 82 16 151/93 H 151/93 H 98 Weight Weight 116.936 kg I&O: 04/04/18 04/05/18 04/06/18 06:59 06:59 06:59 Intake Total 2440 3610 Balance 2440 3610 Result Diagrams: 04/06/18 04:02 04/06/18 04:02 <Robby Martin - Last Filed: 04/06/18 13:15> - Objective Vital Signs & Weight: Vital Signs (12 hours) Temp Pulse Resp BP BP Pulse Ox 04/06/18 11:10 97.5 F L 56 L 20 159/101 H 97 04/06/18 08:00 143/93 H 04/06/18 07:53 98.3 F 74 20 04/06/18 07:10 98.3 F 74 20 143/93 H 100 Weight Weight 118.342 kg I&O: 04/05/18 04/06/18 04/07/18 06:59 06:59 06:59 Intake Total 2440 5962 Balance 2440 5962 Result Diagrams: 04/06/18 04:02 04/06/18 04:02 <Margarita Almendarez - Last Filed: 04/06/18 17:25> Phys Exam - Physical Examination Respiratory: no wheezing, no rales, no rhonchi, wheezing present, clear to auscultation bilateral Cardiovascular: RRR, no significant murmur, no rub, gallop, irregular Gastrointestinal: soft, non-tender, no distention, positive bowel sounds Musculoskeletal: no edema, pulses present, edema present Neurological: moves all 4 limbs Psychiatric: normal affect <Robby Martin - Last Filed: 04/06/18 13:15> Dx/Plan (1) Acute alcoholic hallucinosis Code(s): F10.951 - ALCOHOL USE, UNSP W ALCOH-INDUCE PSYCH DISORDER W HALLUCIN Status: Acute (2) Alcohol withdrawal syndrome Code(s): F10.239 - ALCOHOL DEPENDENCE WITH WITHDRAWAL, UNSPECIFIED Status: Acute QualifierTitle: Complication of substance-induced condition: with unspecified complication Qualified Code(s): F10.239 - Alcohol dependence with withdrawal, unspecified (3) Hypokalemia Code(s): E87.6 - HYPOKALEMIA Status: Acute (4) Metabolic acidosis Code(s): E87.2 - ACIDOSIS Status: Acute - Plan Plan: 1) Alcohol Withdrawal Syndrome: - currently improved from yesterday - cont libreium taper outpatient - pt had relapse and has been drinking for 1 week 2) Anion Gap Metabolic Acidosis, resolved -IVF NS 3) Alcoholic hepatitis - Transaminases more elevated than last admission - continue to monitor - 2/2 acute alcoholic hepatitis vs alcoholic steatohepatitis. trend, IVF 4) Hypomagnesemia - discharge on multivitamin 5) Depression/anxiety - discharge on home meds 6) Asthma - discharge on home meds 7) Alcohol abuse - quitline counselor cessation 8) HTN - discharge on home meds <Robby Martin - Last Filed: 04/06/18 13:15> Attending Addendum - Attending Addendum Date/Time: 04/06/18 1724 I personally evaluated the patient and discussed the management with Dr. Martin. I agree with the History, Examination, Assessment and Plan documented above with any addition or exceptions noted below. The patient's tremors have resolved. He thinks that he could go home with librium taper. He discussed needing something for sleep. Melatonin was recommended. We are avoiding sedating meds with his alcohol withdrawal and alcohol abuse history. <Margarita Almendarze - Last Filed: 04/06/18 17:25>
[2018-04-06] MEDS: Sodium Chloride 0.9% 1,000 ML IV SCH (06:30)
[2018-04-06] MEDS: Famotidine 20 MG TAB PO SCH (07:53)
[2018-04-06] MEDS: chlordiazePOXIDE HCl 25 MG CAP PO SCH (07:53)
[2018-04-06] MEDS ORDERED: Folic Acid 1 MG TAB PO SCH (09:00)
[2018-04-06] MEDS ORDERED: Multivitamin W/ Minerals 1 TAB PO SCH (09:00)
[2018-04-06] MEDS ORDERED: Ondansetron HCl/PF 4 MG/2 ML Vial IVP SCH (11:30)
[2018-04-06 11:44] VITALS: BP 159/101; TEMP 97.5
--- NOTE | 2018-04-06 14:09 | DIS-2 ---
DATE OF ADMISSION: 04/04/2018 DATE OF DISCHARGE: 04/06/2018 RESIDENT: Dr. Robby Martin. ADMITTING ATTENDING: Dr. Weston Garvin. DISCHARGE ATTENDING: Dr. Margarita Almendarez. CONSULTATIONS: None. PROCEDURES: None. PRIMARY DIAGNOSIS: Alcohol withdrawal syndrome. SECONDARY DIAGNOSES: 1. Alcohol withdrawal syndrome. 2. Anion gap metabolic acidosis. 3. Alcoholic hepatitis. 4. Hypomagnesemia. 5. Depression, anxiety. 6. Asthma. 7. Alcohol abuse. 8. Hypertension. DISCHARGE MEDICATIONS: Gabapentin 100 mg capsule p.o. t.i.d., hydrochlorothiazide 25 mg tab p.o. q.a .m., albuterol sulfate 2 puffs inhaled q.6 hours p.r.n., albuterol sulfate 2.5 mg per 3 mL nebulized q.6 hours p.r.n., esomeprazole magnesium 40 mg capsule p.o. q.a.m., carvedilol 25 mg tab 6.25 mg p.o. b.i.d., ondansetron 4 mg tab p.o. q.4 hours p.r.n., chlordiazepoxide HCL (Librium) 25 mg capsule 100 mg p.o. t.i.d., folic acid 1 mg tab p.o. daily, multivitamin with minerals 1 tab p.o. daily. HISTORY OF PRESENT ILLNESS AND HOSPITAL COURSE: Mr. Thierry Archer is a 37-year-old male with a pas t medical history of cirrhosis, alcohol abuse, alcohol hepatitis, chronic pancreatitis who presented to the ED for alcohol withdrawal. He has been drinking a fifth of vodka every day for the past week. His last drink was around midnight the night before arriving at the ED. The patient states he deve loped similar symptoms of withdrawal at around 10:00 a.m. this morning. He has had nausea, vomiting, tremors, and abdominal pain. He also had visual and auditory hallucinations. The patient was start ed on MISTI protocol and a Librium taper. He progressed well during his Librium taper with complete re solution of his tremors and visual hallucinations. He reports that he is feeling better today beside s muscle aches, headaches and he has some nausea with food.
--- NOTE | 2018-04-07 08:18 | DIS-2 ---
DATE OF ADMISSION: 04/04/2018 DATE OF DISCHARGE: 04/06/2018 RESIDENT: Dr. Robby Martin. ADMITTING ATTENDING: Dr. Weston Garvin. DISCHARGE ATTENDING: Dr. Margarita Almendarez. CONSULTS: None. PROCEDURES: None. PRIMARY DIAGNOSIS: Alcohol withdrawal syndrome. SECONDARY DIAGNOSES: 1. Anion gap metabolic acidosis, resolved. 2. Alcoholic hepatitis. 3. Hypomagnesemia. 4. Depression/anxiety. 5. Asthma. 6. Alcohol abuse. 7. Hypertension. DISCHARGE MEDICATIONS: Gabapentin 100 mg capsule p.o. t.i.d., hydrochlorothiazide 25 mg tab p.o. q.a.m., albuterol sulfate 2 puffs inhaled q.6 hours p.r.n., albuterol sulfate 2.5 mg in 3 mL nebulized q.6 hours p.r.n., esomeprazole magnesium 40 mg capsule p.o. q.a.m. with meals, carvedilol 25 mg tab 6.25 mg p.o. b.i.d. with meals, ondansetron 4 mg tab p.o. q.6 hours p.r.n., chlordiazepoxide, Librium 25 mg cap 100 mg p.o. t.i.d., folic acid 1 mg tab p.o. daily 90 days, multivitamin with minerals 1 tab p.o. daily. HISTORY OF PRESENT ILLNESS AND HOSPITAL COURSE: Thierry Archer presented to the hospital on 04/04/2018, complaining of alcohol withdrawal symptoms including visual hallucinations and tremors. He was admitted that day and started on ASE protocol and a Librium taper. His past medical history includes cirrhosis, alcohol abuse, alcohol hepatitis, and chronic pancreatitis. His hospital course was fairly benign. He improved with the Librium taper. His nausea and vomiting improved. He was able to tolerate solid food. He reports today that he is feeling much better. His visual hallucinations and tremors have resolved and he is ready to go home. Lab results during this hospitalization were fairly benign. Things to note would be a low magnesium level, she is being discharged on multivitamin to attempt to correct that. The magnesium level was 1.1, normal being above 1.6. Other pertinent lab values would be an elevated AST and ALT. DISPOSITION: Stable. DISCHARGE INSTRUCTIONS: Include; 1. Location: Being home. 2. Diet: As tolerated. 3. Activity: As tolerated. 4. Followup: He needs to follow up and establish as a new patient in [place] where he is planning on moving on Friday. MTDD
== END 2018-04-06 14:13 | disposition home or self-care (01) ==
LOC: ERS 12:50 → 2SW 16:03
PROVIDERS: ADMIT Family Medicine; ATTEND Family Medicine
DX: F10.239 Alcohol dependence with withdrawal, unspecified (principal); K70.10 Alcoholic hepatitis without ascites; E87.2 Acidosis; E83.42 Hypomagnesemia; F41.9 Anxiety disorder, unspecified; F32.9 Major depressive disorder, single episode, unspecified; J45.909 Unspecified asthma, uncomplicated; I10 Essential (primary) hypertension; E87.6 Hypokalemia; Z79.899 Other long term (current) drug therapy
CPT/HCPCS: 36415; 80053; 80306; 80307; 81003; 81015; 82550; 83735; 85025; 85610; 85730; 93005; 94760; 96361; 96365; 96366; 96375; 96376; G0378; J2060; J2405; J3411; J7042